=== PATIENT | female | born 1950 | race Caucasian/White ===

== ENCOUNTER 2018-03-17 16:09 | Outpatient (REF) | payer MEDICARE, SELFPAY ==
[2018-03-17 19:08] LABS: HCT 39.3 % (36.0-46.0); HGB 13.2 g/dL (12.0-15.5); Mean Corp. HGB Concentration 33.6 g/dL (32.0-36.0); Mean Corpuscular Hemoglobin 34.1 pg (27.0-33.0); Mean Corpuscular Volume 101.6 fL (80-95); Mean Platelet Volume 10.1 fL (8.0-11.0); Platelet Count 249 x1000/uL (130-400); RBC 3.87 m/cumm (4.00-5.20); RBC Distribution Width 12.8 % (11.7-14.6)
[2018-03-17 19:26] LABS: ALT 19 U/L (12-78); AST 25 U/L (15-37); Albumin 3.6 g/dL (3.4-5.0); Alkaline Phosphatase 113 U/L (46-116); Anion Gap 9.4 mmol/L (3-11); BUN 19 mg/dL (7-18); Bilirubin, Total 0.2 mg/dL (0.2-1.0); CO2 25.6 mmol/L (21.0-32.0); CREATININE 1.12 mg/dL (0.55-1.02); Calcium 9.1 mg/dL (8.5-10.1); Chloride 104 mmol/L (98-107); Estimated GFR 48.52 (mL/min/1.73m2); Glucose 91 mg/dL (70-100); Potassium 4.6 mmol/L (3.5-5.1); Sodium 139 mmol/L (136-145); TSH 0.57 uIU/mL (0.358-3.74); Total Protein 6.7 g/dL (6.4-8.2)
[2018-03-20 12:59] LABS: Methylmalonic Acid 0.26 nmol/mL (<=0.40)
== END 2018-03-17 16:10 ==
LOC: NCHCN 16:09
PROVIDERS: PCP Internal Medicine; Visit Provider Internal Medicine
DX: I10 Essential (primary) hypertension (principal); R63.4 Abnormal weight loss; N32.9 Bladder disorder, unspecified; F17.210 Nicotine dependence, cigarettes, uncomplicated
CPT/HCPCS: 80053; 80186; 85027; 84443

== ENCOUNTER 2019-02-26 18:33 | Outpatient (REF) | payer MEDICARE, SELFPAY ==
[2019-02-26 19:46] LABS: Anion Gap 12.7 mmol/L (3-11); BUN 20 mg/dL (7-18); CO2 24.3 mmol/L (21.0-32.0); CREATININE 0.99 mg/dL (0.55-1.02); Calcium 10.1 mg/dL (8.5-10.1); Chloride 104 mmol/L (98-107); Estimated GFR 55.78 (mL/min/1.73m2); Glucose 93 mg/dL (70-100); Potassium 4.1 mmol/L (3.5-5.1); Sodium 141 mmol/L (136-145)
[2019-02-26 19:58] LABS: HCT 38.5 % (36.0-46.0); HGB 13.2 g/dL (12.0-15.5); Mean Corp. HGB Concentration 34.3 g/dL (32.0-36.0); Mean Corpuscular Hemoglobin 34.7 pg (27.0-33.0); Mean Corpuscular Volume 101.3 fL (80-95); Mean Platelet Volume 10.1 fL (8.0-11.0); Platelet Count 266 x1000/uL (130-400); RBC Distribution Width 13.2 % (11.7-14.6); White Blood Cell Count 8.06 k/cumm (4.4-10.8)
[2019-02-26 20:55] LABS: ESR 29 mm/hr (0-30)
[2019-03-02 10:09] LABS: Rheumatoid Factor 119 IU/mL (<12.5)
[2019-03-02 10:12] LABS: Cyclic Citrullinated Peptide 2.5 U/mL (<5.0)
== END 2019-02-26 18:53 ==
LOC: NCHCN 18:33
PROVIDERS: PCP Internal Medicine; Visit Provider Internal Medicine
DX: M41.9 Scoliosis, unspecified (principal); L40.8 Other psoriasis; G25.81 Restless legs syndrome; M06.9 Rheumatoid arthritis, unspecified; M71.30 Other bursal cyst, unspecified site
CPT/HCPCS: 80048; 85027; 85652; 86200; 86140; 86431

== ENCOUNTER 2020-01-07 19:54 | Outpatient (REF) | payer MEDICARE, SELFPAY ==
[2020-01-07 19:23] LABS: Abs Immature Grans 0.02 k/cumm (0.0-0.09); Absolute Basophil Count 0.04 k/cumm (0.0-0.2); Absolute Eosinophil Count 0.07 k/cumm (0.0-0.7); Absolute Lymphocyte Count 1.29 k/cumm (1.2-3.4); Absolute Monocyte Count 0.46 k/cumm (0.11-0.7); Absolute Neutrophil Count 6.82 k/cumm (1.2-6.7); Basophils % 0.5; Eosinophils % 0.8; HCT 38.2 % (36.0-46.0); HGB 12.9 g/dL (12.0-15.5); Immature Grans % 0.2 %; Lymphocytes % 14.8; Mean Corp. HGB Concentration 33.8 g/dL (32.0-36.0); Mean Corpuscular Hemoglobin 35.4 pg (27.0-33.0); Mean Corpuscular Volume 104.9 fL (80-95); Mean Platelet Volume 10.4 fL (8.0-11.0); Monocytes % 5.3; Neutrophils % 78.4; Platelet Count 292 x1000/uL (130-400); RBC 3.64 m/cumm (4.00-5.20); RBC Distribution Width 13.4 % (11.7-14.6)
[2020-01-07 19:31] LABS: ALT 55 U/L (14-59); AST 74 U/L (15-37); Alkaline Phosphatase 100 U/L (46-116); Anion Gap 9.8 mmol/L (3-11); BUN 17 mg/dL (7-18); Bilirubin, Total 0.5 mg/dL (0.2-1.0); CO2 27.2 mmol/L (21.0-32.0); CREATININE 1.27 mg/dL (0.55-1.02); Calcium 9.6 mg/dL (8.5-10.1); Chloride 103 mmol/L (98-107); Estimated GFR 41.72 (mL/min/1.73m2); Glucose 98 mg/dL (74-106); Potassium 3.7 mmol/L (3.5-5.1); Sodium 140 mmol/L (136-145); Total Protein 6.7 g/dL (6.4-8.2)
[2020-01-07 20:06] LABS: ESR 15 mm/hr (0-30)
== END 2020-01-07 20:14 ==
LOC: NCHCN 19:54
PROVIDERS: PCP Internal Medicine; Visit Provider Internal Medicine
DX: R63.4 Abnormal weight loss (principal); D72.829 Elevated white blood cell count, unspecified; I10 Essential (primary) hypertension; M06.9 Rheumatoid arthritis, unspecified
CPT/HCPCS: 80053; 85652; 85025

== ENCOUNTER 2020-01-28 14:16 | Outpatient (REF) | payer MEDICARE, SELFPAY ==
[2020-01-28 19:30] LABS: ALT 28 U/L (14-59); AST 35 U/L (15-37); Albumin 3.9 g/dL (3.4-5.0); Alkaline Phosphatase 90 U/L (46-116); Bilirubin, Direct 0.13 mg/dL (0.00-0.20); Bilirubin, Total 0.4 mg/dL (0.2-1.0); Total Protein 6.6 g/dL (6.4-8.2)
== END 2020-01-28 14:36 ==
LOC: NCHCN 14:16
PROVIDERS: PCP Internal Medicine; Visit Provider Internal Medicine
DX: R94.5 Abnormal results of liver function studies (principal)
CPT/HCPCS: 80076

== ENCOUNTER 2020-11-30 15:05 | Outpatient (REF) | payer MEDICARE, SELFPAY ==
[2020-11-30 20:28] LABS: HCT 37.8 % (36.0-46.0); HGB 12.4 g/dL (11.2-15.7); MCH 34.3 pg (27.0-33.0); MCHC 32.8 % (32.0-36.0); MCV 104.4 fL (80-95); MPV 10.7 fL (8.0-11.0); Platelet Count 221 10^3/uL (130-400); RBC 3.62 10^6/uL (3.93-5.22); RDW 13.1 % (11.7-14.6); WBC 8.57 10^3/uL (4.4-10.8)
[2020-11-30 20:36] LABS: Albumin 3.8 g/dL (3.4-5.0); Anion Gap 7.7 mmol/L (3-11); BUN 20 mg/dL (7-18); CO2 28.3 mmol/L (21.0-32.0); CREATININE 1.4 mg/dL (0.55-1.02); Calcium 8.9 mg/dL (8.5-10.1); Chloride 105 mmol/L (98-107); Estimated GFR 37.18 (mL/min/1.73m2); Glucose 87 mg/dL (74-106); Potassium 4.3 mmol/L (3.5-5.1); Sodium 141 mmol/L (136-145)
[2020-11-30 20:50] LABS: PHOSPHORUS 4.1 mg/dL (2.6-4.7)
== END 2020-11-30 15:06 | disposition home or self-care (01) ==
LOC: NCHCN 15:05
PROVIDERS: PCP Internal Medicine; Visit Provider Internal Medicine
DX: I10 Essential (primary) hypertension (principal); M06.9 Rheumatoid arthritis, unspecified; I35.0 Nonrheumatic aortic (valve) stenosis
CPT/HCPCS: 80069; 85027

== ENCOUNTER 2020-12-29 15:02 | Outpatient (REF) | payer MEDICARE, SELFPAY ==
[2020-12-29 19:46] LABS: Albumin 3.7 g/dL (3.4-5.0); Anion Gap 8.6 mmol/L (3-11); BUN 17 mg/dL (7-18); CO2 27.4 mmol/L (21.0-32.0); CREATININE 1.3 mg/dL (0.55-1.02); Calcium 9.6 mg/dL (8.5-10.1); Chloride 107 mmol/L (98-107); Estimated GFR 40.49 (mL/min/1.73m2); Glucose 60 mg/dL (74-106); PHOSPHORUS 4.1 mg/dL (2.6-4.7); Potassium 4.2 mmol/L (3.5-5.1); Sodium 143 mmol/L (136-145)
[2020-12-29 20:02] LABS: Bilirubin Negative (Negative); Blood Trace-lysed (Negative); Clarity Clear (Clear); Glucose Negative (Negative); Ketones Negative (Negative); Leukocyte Esterase Negative (Negative); Nitrite Negative (Negative); Urobilinogen 0.2 EU/dL (Up TO 0.2)
[2020-12-29 20:19] LABS: Bacteria Negative HPF (Negative); C & S Indicated? No; Casts Negative LPF (Negative); Crystals Negative HPF (Negative); Epithelial Cells Few HPF (Negative); Mucus Negative (Negative); Other Cells Negative (Negative); RBC 0-2 HPF (0-2); WBC Negative HPF (0-5)
[2020-12-29 20:25] LABS: COMMENT (LAB VIEW ONLY) < 13.00 mg/dL
[2021-01-03 15:50] LABS: Albumin, Urine % 18.6 %; Globulins, Urine % 81.4 %; Immunotyping, Urine (See Note); Total Protein Urine 13 mg/dL (See Note)
== END 2020-12-29 15:03 | disposition home or self-care (01) ==
LOC: NCHCN 15:02
PROVIDERS: PCP Internal Medicine; Visit Provider Internal Medicine
DX: N18.30 Chronic kidney disease, stage 3 unspecified (principal)
CPT/HCPCS: 80069; 84156; 84166; 86335; 81003; 81015; 82043; 82570

== ENCOUNTER 2021-12-25 12:19 | Outpatient (REF) | payer MEDICARE, SELFPAY ==
[2021-12-25 19:03] LABS: Abs Immature Grans 0.01 10^3/uL (0.0-0.06); Absolute Basophil Count 0.08 10^3/uL (0.0-0.2); Absolute Eosinophil Count 0.12 10^3/uL (0.0-0.7); Absolute Lymphocyte Count 1.36 10^3/uL (1.2-3.4); Absolute Monocyte Count 0.71 10^3/uL (0.1-0.8); Absolute Neutrophil Count 5.34 10^3/uL (1.2-6.7); Eosinophils % 1.6; HCT 37.6 % (36.0-46.0); HGB 12.4 g/dL (11.2-15.7); Immature Grans % 0.1; Lymphocytes % 17.8; MCH 33.6 pg (27.0-33.0); MCV 102 fL (80-95); MPV 10.5 fL (8.0-11.0); Monocytes % 9.3; Neutrophils % 70.2; Platelet Count 239 10^3/uL (130-400); RBC 3.69 10^6/uL (3.93-5.22); RDW 13.6 % (11.7-14.6); RDW-SD 51.1 fL; WBC 7.62 10^3/uL (4.4-10.8)
[2021-12-25 19:09] LABS: ESR 17 mm/hr (0-30)
[2021-12-25 19:20] LABS: Albumin 3.7 g/dL (3.4-5.0); Anion Gap 7.8 mmol/L (3-11); BUN 16 mg/dL (7-18); C-Reactive Protein 0.17 mg/dL (0.0-0.3); CO2 26.2 mmol/L (21.0-32.0); CREATININE 1.1 mg/dL (0.55-1.02); Calcium 9.6 mg/dL (8.5-10.1); Chloride 109 mmol/L (98-107); Estimated GFR 48.96 (mL/min/1.73m2); Glucose 87 mg/dL (74-106); PHOSPHORUS 4.4 mg/dL (2.6-4.7); Potassium 4.4 mmol/L (3.5-5.1); Sodium 143 mmol/L (136-145); Uric Acid 4.8 mg/dL (2.6-6.0)
== END 2021-12-25 12:20 | disposition home or self-care (01) ==
LOC: NCHCN 12:19
PROVIDERS: PCP Internal Medicine; Visit Provider Internal Medicine
DX: N18.30 Chronic kidney disease, stage 3 unspecified (principal); N95.2 Postmenopausal atrophic vaginitis; M06.9 Rheumatoid arthritis, unspecified
CPT/HCPCS: 80069; 85652; 84550; 85025; 86140

== ENCOUNTER 2022-08-27 19:32 | Outpatient (REF) | payer MEDICARE, SELFPAY ==
[2022-08-27 19:37] LABS: HCT 37.7 % (36.0-46.0); HGB 12.7 g/dL (11.2-15.7); MCH 33.3 pg (27.0-33.0); MCHC 33.7 % (32.0-36.0); MCV 99 fL (80-95); MPV 10.9 fL (8.0-11.0); Platelet Count 217 10^3/uL (130-400); RBC 3.81 10^6/uL (3.93-5.22); RDW 13.4 % (11.7-14.6); RDW-SD 48.9 fL; WBC 7.58 10^3/uL (4.4-10.8)
[2022-08-27 19:41] LABS: ESR 11 mm/hr (0-30)
[2022-08-27 19:50] LABS: Albumin 3.7 g/dL (3.4-5.0); Anion Gap 9.4 mmol/L (3-11); BUN 18 mg/dL (7-18); CO2 24.6 mmol/L (21.0-32.0); Calcium 9.5 mg/dL (8.5-10.1); Chloride 108 mmol/L (98-107); Estimated GFR 60.23 (mL/min/1.73m2); Glucose 131 mg/dL (74-106); PHOSPHORUS 3.6 mg/dL (2.6-4.7); Potassium 4.4 mmol/L (3.5-5.1); Sodium 142 mmol/L (136-145)
[2022-08-28 17:40] LABS: CRP, High Sensitivity 1.62 mg/L (See Note)
== END 2022-08-27 19:33 | disposition home or self-care (01) ==
LOC: NCHCN 19:32
PROVIDERS: PCP Internal Medicine; Visit Provider Internal Medicine
DX: N18.30 Chronic kidney disease, stage 3 unspecified (principal); I10 Essential (primary) hypertension; M06.9 Rheumatoid arthritis, unspecified
CPT/HCPCS: 80069; 85027; 85652; 86141

== ENCOUNTER 2022-11-01 14:56 | Outpatient (REF) | payer MEDICARE, SELFPAY ==
[2022-11-01 19:53] LABS: ESR 9 mm/hr (0-30)
[2022-11-01 20:05] LABS: Anion Gap 8.4 mmol/L (3-11); BUN 24 mg/dL (7-18); C-Reactive Protein 0.97 mg/dL (0.0-0.3); CO2 26.6 mmol/L (21.0-32.0); CREATININE 1.1 mg/dL (0.55-1.02); Calcium 9.6 mg/dL (8.5-10.1); Chloride 104 mmol/L (98-107); Estimated GFR 53.39 (mL/min/1.73m2); Glucose 106 mg/dL (74-106); Magnesium 2.1 mg/dL (1.8-2.4); Potassium 4.8 mmol/L (3.5-5.1); Sodium 139 mmol/L (136-145)
[2022-11-01 20:34] LABS: Vitamin D 25 Total 36.9 ng/mL (30-100)
== END 2022-11-01 14:57 | disposition home or self-care (01) ==
LOC: NCHCN 14:56
PROVIDERS: PCP Internal Medicine; Visit Provider Internal Medicine
DX: M81.0 Age-related osteoporosis without current pathological fracture (principal); M06.9 Rheumatoid arthritis, unspecified
CPT/HCPCS: 80048; 82306; 85652; 83735; 86140

== ENCOUNTER 2022-12-11 13:14 | Outpatient (REF) | payer MEDICARE, SELFPAY ==
[2022-12-11 19:10] LABS: Bilirubin Negative (Negative); Blood Small (Negative); Clarity Clear (Clear); Glucose Negative (Negative); Ketones Negative (Negative); Leukocyte Esterase Moderate (Negative); Nitrite Negative (Negative); Urobilinogen 0.2 mg/dL (Up to 0.2)
[2022-12-11 19:26] LABS: Bacteria Rare HPF (Negative); C & S Indicated? Yes; Casts Negative LPF (Negative); Crystals Negative HPF (Negative); Epithelial Cells Rare HPF (Negative); Mucus Negative (Negative); RBC 0-2 HPF (0-2)
== END 2022-12-11 13:15 | disposition home or self-care (01) ==
LOC: NCHCN 13:14
PROVIDERS: PCP Internal Medicine; Visit Provider Nurse Practitioner Family
DX: R35.0 Frequency of micturition (principal)
CPT/HCPCS: 81003; 81015; 87086

== ENCOUNTER 2023-07-31 17:41 | Outpatient (REF) | payer MEDICARE, SELFPAY ==
[2023-07-31 20:51] LABS: HCT 38.2 % (36.0-46.0); HGB 12.6 g/dL (11.2-15.7); MCH 32.1 pg (27.0-33.0); MCV 97 fL (80-95); MPV 10.2 fL (8.0-11.0); Platelet Count 317 10^3/uL (130-400); RBC 3.92 10^6/uL (3.93-5.22); RDW-SD 46.4 fL; WBC 12.32 10^3/uL (4.4-10.8)
[2023-07-31 21:10] LABS: ALT 13 U/L (14-59); Anion Gap 10.3 mmol/L (3-11); BUN 19 mg/dL (7-18); CO2 24.7 mmol/L (21.0-32.0); Calcium 9.9 mg/dL (8.5-10.1); Chloride 105 mmol/L (98-107); Creatine Kinase 165 U/L (26-192); Estimated GFR 59.86 (mL/min/1.73m2); Glucose 106 mg/dL (74-106); LDH 354 U/L (81-234); Potassium 4.2 mmol/L (3.5-5.1); Sodium 140 mmol/L (136-145)
[2023-07-31 23:04] LABS: Calculated LDL 44 mg/dL (<100); Cholesterol 125 mg/dL (<200); HDL Cholesterol 58 mg/dL (40-60); Triglyceride 118 mg/dL (<150)
[2023-08-01 17:30] LABS: CRP, High Sensitivity 12.19 mg/L (See Note)
== END 2023-07-31 17:42 | disposition home or self-care (01) ==
LOC: NCHCN 17:41
PROVIDERS: PCP Internal Medicine; Visit Provider Internal Medicine
DX: E78.5 Hyperlipidemia, unspecified (principal); M60.88 Other myositis, other site
CPT/HCPCS: 80048; 80061; 82550; 85027; 86141; 83615; 84460

== ENCOUNTER 2024-02-19 20:27 | Outpatient (REF) | payer MEDICARE, SELFPAY ==
[2024-02-19 23:02] LABS: Folate 16.5 ng/mL (8.6-20.0); TSH 0.78 uIU/Ml (0.36-3.74); Vitamin B12 232 pg/mL (193-986)
[2024-02-19 23:17] LABS: Hemoglobin A1C 5.7 % (<5.7)
[2024-02-19 23:30] LABS: C-Reactive Protein 0.55 mg/dL (<or=0.5); LDH 300 U/L (81-234)
== END 2024-02-19 20:28 | disposition home or self-care (01) ==
LOC: NCHCN 20:27
PROVIDERS: PCP Internal Medicine; Visit Provider Internal Medicine
DX: R42 Dizziness and giddiness (principal); M60.9 Myositis, unspecified
CPT/HCPCS: 80186; 82607; 82746; 83036; 83615; 84439; 84443; 86140

== ENCOUNTER 2024-10-16 16:26 | Outpatient (REF) | payer MEDICARE, SELFPAY ==
[2024-10-16 19:09] LABS: HCT 41.6 % (36.0-46.0); HGB 13.9 g/dL (11.2-15.7); MCH 33.4 pg (27.0-33.0); MCHC 33.4 % (32.0-36.0); MCV 100 fL (80-95); MPV 10.2 fL (8.0-11.0); Platelet Count 236 10^3/uL (130-400); RBC 4.16 10^6/uL (3.93-5.22); RDW 14.1 % (11.7-14.6); RDW-SD 51.5 fL; WBC 8.89 10^3/uL (4.4-10.8)
[2024-10-16 19:32] LABS: Anion Gap 8.3 mmol/L (3-11); BUN 23 mg/dL (7-18); CO2 26.7 mmol/L (21.0-32.0); CREATININE 1.1 mg/dL (0.55-1.02); Calcium 10.1 mg/dL (8.5-10.1); Chloride 106 mmol/L (98-107); Estimated GFR 52.73 (mL/min/1.73m2); Glucose 101 mg/dL (74-106); Magnesium 2.4 mg/dL (1.8-2.4); Potassium 4.8 mmol/L (3.5-5.1); Sodium 141 mmol/L (136-145); TSH 0.53 uIU/mL (0.36-3.74)
== END 2024-10-16 16:27 | disposition home or self-care (01) ==
LOC: NCHCN 16:26
PROVIDERS: PCP Internal Medicine; Visit Provider Internal Medicine
DX: I95.1 Orthostatic hypotension (principal)
CPT/HCPCS: 80048; 85027; 83735; 84443

== ENCOUNTER 2025-04-26 15:46 | Outpatient (REF) | payer MEDICARE, SELFPAY ==
[2025-04-26 19:39] LABS: Abs Immature Grans 0.03 10^3/uL (0.0-0.06); HCT 39.6 % (36.0-46.0); HGB 13.4 g/dL (11.2-15.7); Immature Grans % 0.4 %; MCH 32.6 pg (27.0-33.0); MCHC 33.8 % (32.0-36.0); MCV 96 fL (80-95); MPV 9.6 fL (8.0-11.0); Platelet Count 300 10^3/uL (130-400); RBC 4.11 10^6/uL (3.93-5.22); RDW 14.3 % (11.7-14.6); RDW-SD 51.0 fL; WBC 7.39 10^3/uL (4.4-10.8)
[2025-04-28 10:56] LABS: Lyme Ab w Rflx to Lyme Confirm Negative (Negative)
[2025-04-29 14:28] LABS: B. miyamotoi PCR Negative (Negative); Babesia divergens/MO-1 Negative (Negative); Ehrlichia muris eauclairensis Negative (Negative)
== END 2025-04-26 15:47 | disposition home or self-care (01) ==
LOC: NCHCN 15:46
PROVIDERS: PCP Internal Medicine; Visit Provider Nurse Practitioner Family
DX: R05.1 Acute cough (principal)
CPT/HCPCS: 87798; 85025; 86618

== ENCOUNTER 2025-04-30 11:14 | Inpatient (IN) | payer MEDICARE, SELFPAY ==
[2025-04-30] VITALS (91 sets, daily range): BP systolic 137–214; BP diastolic 86–108; PULSE 65–109; RESP 13–34; TEMP 36.5–36.6; O2SAT 88–99
--- NOTE | 2025-04-30 11:26 | W.ED.GENAD ---
Discharge Plan Discharge Details Chief Complaint: Abd Prob Primary Care Provider: Dilan Melgar ED Provider: Chicho Seo Home Meds and New Rx's Prescriptions: No Action prednisone 1 MG tablet 4 mg PO DAILY hydrocodone-acetaminophen 1 EACH tablet 1 tab-cap PO TID aspirin [Aspirin Low-Strength] 81 MG tablet,chewable 81 mg PO DAILY calcium citrate-vitamin D3 1 EACH tablet 1 ea PO DAILY lactulose [Constulose] 10 gram/15 mL solution 15 ml PO DAILY Patient Comments: TAKE 15 ML BY MOUTH DAILY methocarbamol 500 mg tablet 1,000 mg PO QID PRN Patient Comments: TAKE TWO TABLETS BY MOUTH FOUR TIMES A DAY NEEDED lidocaine 5 % adhesive patch,medicated 1 patch transdermal Q24H Patient Comments: APPLY ONE PATCH TOPICALLY EVERY DAY REMOVE PATCHES AFTER 12 HOURS, 12 HOURS ON 12 HOURS OFF amlodipine 5 mg tablet 5 mg PO DAILY carbidopa-levodopa 25-100 mg tablet 1 tab PO TID clonazepam 0.5 mg tablet 0.5 mg PO BID PRN Spiriva Respimat 2.5 mcg/actuation mist 2 inh INHALATION BID HPI General Date/Time Provider Initiated Documentation: 04/30/25 11:18. HPI Narrative: 74 year-old female presents to ED today by POV/ambulating with her family with a chief complaint of rib pain, acute on chronic back pain, cough with mild shortness of breath in the setting of COPD, and abdominal with diagnosis of constipation with 2 visits to [facility] this week, and seen by PCP at [facility] with onset over the past week. Patient denies cardiac history. Quality described as severe tenderness throughout her back, and ribs, with RUQ abdominal pain, no radiation to syncope, hemoptysis, nausea/vomiting, black/bloody stools, endorses anorexia. Severity is described as severe. Palliating factors include was Rx'd robaxin at [facility]. Provoking factors include certain movements, has severe sciolosis and has a very hunched over contorted habitus as only comfortable posture. Patient not anticoagulated. Related Data Home Medications ?Medication ?Instructions ?Recorded ?Confirmed aspirin 81 mg chewable tablet 81 mg PO DAILY 09/06/15 04/30/25 (Aspirin Low-Strength) calcium 315 mg (as 1 ea PO DAILY 09/06/15 04/30/25 citrate)-vitamin D3 6.25 mcg (250 unit) tablet hydrocodone 7.5 mg-acetaminophen 1 tab-cap PO TID 09/06/15 04/30/25 325 mg tablet prednisone 1 mg tablet 4 mg PO DAILY 09/06/15 04/30/25 amlodipine 5 mg tablet 5 mg PO DAILY 04/30/25 04/30/25 carbidopa 25 mg-levodopa 100 mg 1 tab PO TID 04/30/25 04/30/25 tablet clonazepam 0.5 mg tablet 0.5 mg PO BID PRN 04/30/25 04/30/25 lactulose 10 gram/15 mL oral 15 ml PO DAILY 04/30/25 04/30/25 solution (Constulose) lidocaine 5 % topical patch 1 patch transdermal Q24H 04/30/25 04/30/25 methocarbamol 500 mg tablet 1,000 mg PO QID PRN 04/30/25 04/30/25 tiotropium bromide 2.5 2 inh inhalation BID 04/30/25 04/30/25 mcg/actuation mist for inhalation (Spiriva Respimat) Allergies Allergy/AdvReac Type Severity Reaction Status Date / Time sulfamethoxazole (From AdvReac Intermediate Diarrhea Verified 04/30/25 11:21 Bactrim) trimethoprim (From Bactrim) AdvReac Intermediate Diarrhea Verified 04/30/25 11:21 General Stated Complaint: Abd Prob LAKIA: 3 Review of Systems All systems reviewed & are unremarkable except as noted in HPI and below Exam Narrative Exam Narrative: GENERAL APPEARANCE: Frail, non-toxic, awake and alert, atraumatic, moderate acute distress. SKIN: Warm, pale, dry, intact, without rashes/lesions/ulcerations. HEAD: Normocephalic, atraumatic, normal hair distribution for gender/age. EYES: Normal conjunctiva, no exudates on lids/lashes. ENT: Nares patent, no circumoral cyanosis, no facial swelling NECK: Supple, trachea midline, painless cervical ROM. LUNGS/CHEST: Lungs diffusely rhonchorous without wheezing or crackles, non-labored respirations, normal A/P diameter, symmetrical expansion, no chest wall deformity, active cough HEART (CV/PV): Regular rate and rhythm with murmur of AAS, right radial pulse 2+, no peripheral edema, no JVD. ABDOMEN: Soft, non-distended, no guarding, palpable hernia versus mild rigidity without ecchymosis, right upper quadrant tenderness without Cheney sign. MSK: Normal ROM, no swelling/deformity to bilateral UEs or LEs, moving all extremities without weakness, no cyanosis, spine midline with tenderness all throughout the thoracic back region as well as right and left ribs without crepitus, severe scoliosis NEURO: Mental Status AAOx4 - alert to person, place, time, events No facial droop, no forehead involvement. Motor: No focal weakness Sensory: sensation intact to light touch globally. Gait NT PSYCH: euthymic, cooperative, pleasant, appropriate speech Course Vital Signs Vital signs: Vital Signs Temperature 36.6 C 04/30/25 11:15 Pulse 81 04/30/25 11:15 Respiratory Rate 18 04/30/25 11:15 Blood Pressure 137/87 04/30/25 11:15 Pulse Oximetry 98 04/30/25 11:15 Temperature 36.6 C 04/30/25 11:15 Pulse 81 04/30/25 11:15 Respiratory Rate 18 04/30/25 11:15 Blood Pressure 137/87 04/30/25 11:15 Pulse Oximetry 98 04/30/25 11:15 Pain Level 7 04/30/25 11:15 Medical Decision Making This dictation utilizes [id number] dictation software and may contain unedited grammatical errors. 74 year-old female presents to ED today by POV/ambulating with her family with a chief complaint of rib pain, acute on chronic back pain, cough with mild shortness of breath in the setting of COPD, and abdominal with diagnosis of constipation with 2 visits to [facility] this week, and seen by PCP at [facility] with onset over the past week. Patient denies cardiac history. Quality described as severe tenderness throughout her back, and ribs, with RUQ abdominal pain, no radiation to syncope, hemoptysis, nausea/vomiting, black/bloody stools, endorses anorexia. Severity is described as severe. Palliating factors include was Rx'd robaxin at [facility]. Provoking factors include certain movements, has severe sciolosis and has a very hunched over contorted habitus as only comfortable posture. Patients' medical history: Chronic back pain, right upper quadrant pain, rheumatoid arthritis, osteoporosis, COPD, aortic stenosis, hypertension, history of vertebral fractures. Family and social history: No current tobacco use, no EtOH use, family endorses that she has been able to perform ADLs and get up and move around quite a bit better in the past than this week, poor appetite. Pertinent exam findings / vital signs include exquisite tenderness diffusely to thoracic back and right and left rib cages with right upper quadrant tenderness without overt Cheney sign, regular rate with murmur of AAS, lungs are rhonchorous diffusely, nontoxic and afebrile. Differential / pathologies of concern include atypical chest pain, PE, constipation, small bowel obstruction, pneumonia, hernia, pancreatitis, gastritis, cholecystitis, chronic back pain, thoracic spasm. Diagnostic studies of: -CBC, CMP, magnesium, troponins, lipase, UA, EKG, CTA chest PE study, CT ABD/pelvis with contrast. -CBC shows no leukocytosis, no left shift, no anemia - Lactate negative - CMP shows anion gap of 13.8, otherwise unremarkable - Magnesium within normal limits - Serial troponins are elevated, 256, every hour to 61 - Lipase 21 - UA shows no evidence of UTI - CTA of the chest shows no PE and there is multiple chronic compression fractures of T2 T7-T8 with no other abnormality - EKG with significant movement artifact, sinus rhythm at 84 bpm with a right bundle branch block, possibly new T wave inversions V2 through V6 Interventions of: -Discussed with hospitalist Dr. Freeman at 2065- patient has significantly elevated troponin at 256/261 q1hr, inverted T-waves and significant risk factors likely warranting cardiac studies- would be difficult to have this patient transferred due to their acuity, and availability at this facility after the weekend for baseline studies. -Paged [facility] [place] [phone]. -1g PO APAP, 10mg PO ketorolac, 0.4mg SL nitro ED Course/Assessment/Plan: 74-year-old female has been having some acute on chronic back pain with right upper quadrant abdominal pain, seen multiple times at multiple clinics diagnosed with constipation and given Robaxin which is not helping whatsoever, significant decline in ADLs due to this pain. Due to the atypical and exquisite pain I did perform a cardiac workup as well as PE study, CT scan is negative for any acute pathology, EKG shows some T wave inversions with a new possible right bundle branch block with no prior EKGs to compare to and her troponin is 256 every hour to 261, I discussed with hospitalist that she has high score on heart score warranting possible admission, [facility] [place] is performed for recommendations for any timing of baseline cardiac studies and possible medication recommendations, she had been given Tylenol and Toradol for her back pain and I am trialing 1 sublingual nitro to see if this helps her pain. Patient is signed out with cardiology consult pending with admission provisional pending no recommendation to discharge. Disposition of Non-ST Elevation TN, Chronic Compression Fractures. Patient verbalized understanding of the plan and return to ED criteria and engaged in shared decision making. Medical Records Medical records reviewed: Yes I reviewed the patient's medical records. Imaging Data Radiologic Study: Attestation: I personally reviewed and interpreted this imaging study as follows: Imaging: CT Scan Radiologist's impression: EXAM: CT CHEST PE ABD PELVIS W CLINICAL HISTORY: L sided rib pain, abdominal pain, cough. TECHNIQUE: Imaging Protocol: Axial computed tomography images with coronal and sagittal reformatted images were created and reviewed. Computer aided detection (CAD) was utilized. CONTRAST MATERIAL: Intravenous: Omnipaque 350 Contrast volume:100 ml Oral: / no COMPARISON: No exams were available for comparison FINDINGS: CHEST: Pulmonary parenchyma: No consolidation. No dominant measurable mass. Emphysematous changes greater at the upper lobes. Linear multifocal areas of linear atelectasis. Tracheobronchial tree: No bronchiectasis. No mucous plugging.No bronchial wall thickening. Pleura: No effusion or pneumothorax. Mediastinum: Within normal limits. Pulmonary arteries: No visible emboli. Cardiovascular: Mildly enlarged left atrium and left ventricle. Coronary artery calcifications. No pericardial effusion. Thoracic aorta non-dilated. Bones: Severe scoliosis. [id number] compression fracture of T2. Severe compression fracture of T7. Moderate compression fracture of T8. No displaced rib fractures. Soft tissues: Unremarkable. ABDOMEN and PELVIS: Liver: Normal density. No suspicious mass. Gallbladder and biliary tract: No evidence of stones or wall thickening. No biliary dilatation. Pancreas: Normal density, no abnormal calcifications or inflammatory process. Spleen: Normal. Kidneys: Normal size, contour and axis. No radiodense stones. No obstructive uropathy. Multiple bilateral renal cysts. No suspicious masses seen. Adrenal glands: No masses seen. Aorta: Abdominal portion non-dilated. Severe atherosclerotic changes. Lymph nodes: Within normal limits. Soft tissues: Unremarkable. Bladder: Unremarkable. Bowel: No obstruction or bowel wall thickening. Sigmoid diverticulosis. No evidence of diverticulitis. Appendix appears normal. Peritoneal cavity: No ascites. No focal collection. No mesenteric inflammatory response. No free air. Bones: Unremarkable severe scoliosis and degenerative changes. Moderate compression fracture of L4. Reproductive organs: Unremarkable for age. IMPRESSION: No acute abnormality in the chest, abdomen or pelvis. Severe scoliosis and degenerative changes in the thoracic and lumbar spine. Multiple compression fractures which appear old. Lab Data Lab results reviewed: Yes I reviewed the patient's lab results. Labs: Laboratory Tests Range/Units 04/30/25 04/30/25 04/30/25 12:20 13:10 13:30 WBC (4.4-10.8) 10^3/uL 9.78 RBC (3.93-5.22) 10^6/uL 4.40 Hgb (11.2-15.7) g/dL 14.0 Hct (36.0-46.0) % 41.0 MCV (80-95) fL 93 MCH (27.0-33.0) pg 31.8 MCHC (32.0-36.0) % 34.1 RDW (11.7-14.6) % 14.0 Plt Count (130-400) 10^3/uL 237 MPV (8.0-11.0) fL 8.6 Immature Gran % % 0.5 Neutrophils % % 84.9 Lymphocytes % % 7.4 Monocytes % % 6.7 Eosinophils % % 0.1 Basophils % % 0.4 Nucleated RBC % (0.0-0.3) % 0.0 Absolute Neutrophils (1.2-6.7) 10^3/uL 8.30 H Absolute Lymphocytes (1.2-3.4) 10^3/uL 0.72 L Absolute Monocytes (0.1-0.8) 10^3/uL 0.66 Absolute Eosinophils (0.0-0.7) 10^3/uL 0.01 Absolute Basophils (0.0-0.2) 10^3/uL 0.04 VBG Lactate (<or=2.0) mmol/L 1.6 Sodium (136-145) mmol/L 141 Potassium (3.5-5.1) mmol/L 3.6 Chloride (98-107) mmol/L 102 Carbon Dioxide (21.0-32.0) mmol/L 25.2 Anion Gap (3-11) mmol/L 13.8 H BUN (7-18) mg/dL 37 H Creatinine (0.55-1.02) mg/dL 1.0 Est GFR (CKD-EPI 2020) (mL/min/1.73m2) 59.12 Glucose (74-106) mg/dL 113 H Calcium (8.5-10.1) mg/dL 10.5 H Magnesium (1.8-2.4) mg/dL 2.3 Total Bilirubin (0.2-1.0) mg/dL 0.5 AST (15-37) U/L 46 H ALT (14-59) U/L 17 Alkaline Phosphatase (46-116) U/L 124 H Troponin I (<or=51) ng/L 256 H* 261 H* Total Protein (6.4-8.2) g/dL 8.3 H Albumin (3.4-5.0) g/dL 4.4 Lipase (<78) U/L 21 Urine Color (Yellow) Yellow Urine Clarity (Clear) Clear Urine pH (5-8) 5.5 Ur Specific Bowman (1.005-1.025) 1.015 Urine Protein (Neg-Trace) mg/dL >=300 H Urine Ketones (Negative) mg/dL 15 H Urine Blood (Negative) Moderate H Urine Nitrite (Negative) Negative Urine Bilirubin (Negative) Small H Urine Urobilinogen (Up to 0.2) mg/dL 0.2 Ur Leukocyte Esterase (Negative) Negative Urine RBC (0-2) HPF 10-20 H Urine WBC (0-5) HPF 0-2 Ur Epithelial Cells (Negative) HPF Few Urine Crystals (Negative) HPF Negative Urine Bacteria (Negative) HPF Rare Urine Casts (Negative) LPF 5-10 Hyaline Urine Mucus (Negative) Trace Ur Culture Indicated? No Urine Glucose (Negative) mg/dL Negative PFSH Social History Smoking/Tobacco Use Status: Never Smoking risk assessment performed?: Yes Alcohol Intake: never Drug use: Never Substance use type: does not use Do you feel safe at home: Yes Do you feel safe in your relationship?: Yes
--- NOTE | 2025-04-30 11:45 | RT.EKG_ITS ---
APPROVED REPORT Exam: Resting ECG Reason for Exam: chest pain Patient Location: E HR:84 bpm ECG Measurements Heart Rate 84 AXIS OH [id number] P [id number] QRSd 132 QRS -65 QT 381 T 238 QTc 450 Conclusion Atrial fibrillation...V-rate 72- 97, irreg A-activity Right bundle branch block...QRSd>120, terminal axis(90,270) LVH with IVCD and secondary repol abnrm...multi-criteria, wQRSd, abnr ST-T ST depr, consider ischemia, inferior leads...ST <-0.10mV, II III aVF No STEMI
--- NOTE | 2025-04-30 11:45 | DI.CT_ITS ---
Exam(s) CT CHEST PE ABD PELVIS W EXAM: CT CHEST PE ABD PELVIS W CLINICAL HISTORY: L sided rib pain, abdominal pain, cough. TECHNIQUE: Imaging Protocol: Axial computed tomography images with coronal and sagittal reformatted images were created and reviewed. Computer aided detection (CAD) was utilized. CONTRAST MATERIAL: Intravenous: Omnipaque 350 Contrast volume:100 ml Oral: / no COMPARISON: No exams were available for comparison FINDINGS: CHEST: Pulmonary parenchyma: No consolidation. No dominant measurable mass. Emphysematous changes greater at the upper lobes. Linear multifocal areas of linear atelectasis. Tracheobronchial tree: No bronchiectasis. No mucous plugging.No bronchial wall thickening. Pleura: No effusion or pneumothorax. Mediastinum: Within normal limits. Pulmonary arteries: No visible emboli. Cardiovascular: Mildly enlarged left atrium and left ventricle. Coronary artery calcifications. No pericardial effusion. Thoracic aorta non-dilated. Bones: Severe scoliosis. [id number] compression fracture of T2. Severe compression fracture of T7. Moderate compression fracture of T8. No displaced rib fractures. Soft tissues: Unremarkable. ABDOMEN and PELVIS: Liver: Normal density. No suspicious mass. Gallbladder and biliary tract: No evidence of stones or wall thickening. No biliary dilatation. Pancreas: Normal density, no abnormal calcifications or inflammatory process. Spleen: Normal. Kidneys: Normal size, contour and axis. No radiodense stones. No obstructive uropathy. Multiple bilateral renal cysts. No suspicious masses seen. Adrenal glands: No masses seen. Aorta: Abdominal portion non-dilated. Severe atherosclerotic changes. Lymph nodes: Within normal limits. Soft tissues: Unremarkable. Bladder: Unremarkable. Bowel: No obstruction or bowel wall thickening. Sigmoid diverticulosis. No evidence of diverticulitis. Appendix appears normal. Peritoneal cavity: No ascites. No focal collection. No mesenteric inflammatory response. No free air. Bones: Unremarkable severe scoliosis and degenerative changes. Moderate compression fracture of L4. Reproductive organs: Unremarkable for age. IMPRESSION: No acute abnormality in the chest, abdomen or pelvis. Severe scoliosis and degenerative changes in the thoracic and lumbar spine. Multiple compression fractures which appear old. RADIATION DOSE DELIVERED: 195.91mGy.cm Total DLP DATA REPOSITORY: All CT scans at this facility are submitted to the National Radiology Data Registry (NRDR) Dose Index Registry (DIR) with the [employer] ([employer]). RADIATION OPTIMIZATION: All CT scans at this facility use at least one of these dose optimization techniques: automated exposure control; mA and/or kV adjustment per patient size (includes targeted exams where dose is matched to clinical indication); or iterative reconstruction.
[2025-04-30] MEDS: Omnipaque 350 MG/ML 500 ML BTL-Imaging package IJ (12:23)
[2025-04-30 12:27] LABS: Abs Immature Grans 0.05 10^3/uL (0.0-0.06); HCT 41.0 % (36.0-46.0); HGB 14.0 g/dL (11.2-15.7); Immature Grans % 0.5 %; MCH 31.8 pg (27.0-33.0); MCHC 34.1 % (32.0-36.0); MCV 93 fL (80-95); MPV 8.6 fL (8.0-11.0); Platelet Count 237 10^3/uL (130-400); RBC 4.40 10^6/uL (3.93-5.22); RDW 14.0 % (11.7-14.6); RDW-SD 47.9 fL; WBC 9.78 10^3/uL (4.4-10.8)
[2025-04-30] MEDS: Normal Saline - Diluent 50 ML VIAL IJ (12:43)
[2025-04-30] MEDS: Normal Saline Flush 10 ML SYR IVP ×2 (12:43→19:20)
[2025-04-30 12:46] LABS: ALT 17 U/L (14-59); AST 46 U/L (15-37); Albumin 4.4 g/dL (3.4-5.0); Alkaline Phosphatase 124 U/L (46-116); Anion Gap 13.8 mmol/L (3-11); BUN 37 mg/dL (7-18); Bilirubin, Total 0.5 mg/dL (0.2-1.0); CO2 25.2 mmol/L (21.0-32.0); Calcium 10.5 mg/dL (8.5-10.1); Chloride 102 mmol/L (98-107); Estimated GFR 59.12 (mL/min/1.73m2); Glucose 113 mg/dL (74-106); Lipase 21 U/L (<78); Magnesium 2.3 mg/dL (1.8-2.4); Potassium 3.6 mmol/L (3.5-5.1); Sodium 141 mmol/L (136-145); Total Protein 8.3 g/dL (6.4-8.2)
[2025-04-30 12:48] LABS: Troponin I 256 ng/L (<or=51)
[2025-04-30 13:20] LABS: Glucose Negative (Negative)
[2025-04-30 13:27] LABS: C & S Indicated? No; WBC 0-2 HPF (0-5)
[2025-04-30] MEDS: Ketorolac 10 MG TAB PO (14:02)
[2025-04-30] MEDS: Acetaminophen 500 MG TAB 1000 MG PO (14:03)
[2025-04-30 14:36] LABS: Troponin I 261 ng/L (<or=51)
[2025-04-30] MEDS: nitroGLYcerin 0.4 MG TAB SL ×2 (15:24→15:38)
[2025-04-30 16:33] LABS: Troponin I 299 ng/L (<or=51)
[2025-04-30] MEDS: MORPHine 10 MG/ML VIAL 2 MG IVP (17:18)
--- NOTE | 2025-04-30 17:18 | W.PM.HP.N ---
Date of service: 04/30/25 Time of Service: 17:18 Assessment and Plan Assessment and plan (1) Back pain: Status: Acute Assessment and plan: most likely 2/2 scoliosis. Will consult PT in am. CW medical managment (2) RBBB: Status: Acute Assessment and plan: Unknown if this is new, or just new to us. Will try to attempt to get old ekg's in the am (3) Elevated troponin: Status: Acute Assessment and plan: monitor, concern that back pain is an anginal equivalent. Will order stress and lipid panel (4) Hematuria: Status: Acute Assessment and plan: Exact etiology is unknown. Recommend repeat UA in 4-6 weeks and a more detailed history. (5) Elevated BUN: Status: Acute Assessment and plan: Elevated bun/cr ratio noted. Consider dehydration vs GIB. H/H wnl so will give small bolus (6) Hypercalcemia: Status: Acute Assessment and plan: noted, asymptomatic. Consider ionized calcium if remains high (7) Transaminitis: Status: Acute Assessment and plan: negligible dvtp lovenox History of Present Illness History of Present Illness Chief Complaint: back pain Narrative: This is a 74-year-old female who presents today with weakness as well as back pain. Patient states that she was seen at [facility] and was diagnosed with constipation and sent home with stool softener. Patient continued to have right sided chest and back pain and came in today for further evaluation and treatment. While she was in the ED laboratory work was indicative of an elevation in her troponin into the mid 250 ranges as well as a right bundle branch block. We have no prior EKGs to compare with. Patient states that nothing specific has been making her pain worse besides movement and nothing is made it better besides rest. Patient does have a significant history of scoliosis. Further history states that the patient did smoke until approximately 10 years ago. She states that she did have a cardiac cath approximately 12 years ago after sustaining a fall and suffering a back injury. Patient does endorse some shortness of breath but she also has a restricted airspace in her chest. Concerning her right bundle branch block as well as elevated troponins I asked that the ED reach out to [facility] cardiology. The recommendation is to do monitor serial EKGs and echocardiogram as well as lipids. I will place these orders. In reviewing her laboratory data the patient does have an elevated BUN to creatinine ratio at 37/1.0. She does have mild hypercalcemia. Calcium level 10.5. Patient has mild transaminitis with an AST of 46 and alk phos of 124. Patient is noted to have some hematuria as well. Does not have a positive leukocyte or nitrite. CT of the chest abdomen and pelvis showed severe scoliosis and multiple compression fractures which appear old Review of Systems Narrative: Patient does endorse some reflux disease. Patient does endorse some early satiety. PFSH All Active Problems (Updated 04/30/25 @ 17:27 by Dilan Freeman MD) Transaminitis (Acute) Hypercalcemia (Acute) Elevated BUN (Acute) Hematuria (Acute) Elevated troponin (Acute) RBBB (Acute) Back pain (Acute) Social History Smoking/Tobacco Use Status: Never Smoking risk assessment performed?: Yes Alcohol Intake: never Drug use: Never Substance use type: does not use Do you feel safe at home: Yes Do you feel safe in your relationship?: Yes Meds Allergies and Home Medications Allergies Allergy/AdvReac Type Severity Reaction Status Date / Time sulfamethoxazole (From AdvReac Intermediate Diarrhea Verified 04/30/25 11:21 Bactrim) trimethoprim (From Bactrim) AdvReac Intermediate Diarrhea Verified 04/30/25 11:21 Home Medications ?Medication ?Instructions ?Recorded ?Confirmed ?Type aspirin 81 mg chewable tablet 81 mg PO DAILY 09/06/15 04/30/25 History (Aspirin Low-Strength) calcium 315 mg (as 1 ea PO DAILY 09/06/15 04/30/25 History citrate)-vitamin D3 6.25 mcg (250 unit) tablet hydrocodone 7.5 mg-acetaminophen 1 tab-cap PO TID 09/06/15 04/30/25 History 325 mg tablet prednisone 1 mg tablet 4 mg PO DAILY 09/06/15 04/30/25 History amlodipine 5 mg tablet 5 mg PO DAILY 04/30/25 04/30/25 History carbidopa 25 mg-levodopa 100 mg 1 tab PO TID 04/30/25 04/30/25 History tablet clonazepam 0.5 mg tablet 0.5 mg PO BID PRN 04/30/25 04/30/25 History lactulose 10 gram/15 mL oral 15 ml PO DAILY 04/30/25 04/30/25 History solution (Constulose) lidocaine 5 % topical patch 1 patch transdermal Q24H 04/30/25 04/30/25 History methocarbamol 500 mg tablet 1,000 mg PO QID PRN 04/30/25 04/30/25 History tiotropium bromide 2.5 2 inh inhalation BID 04/30/25 04/30/25 History mcg/actuation mist for inhalation (Spiriva Respimat) Exam Narrative Exam Narrative: HEENT-normocephalic atraumatic mucous membranes moist Neck-no lymphadenopathy no JVD Cardiovascular-regular rate and rhythm no murmurs gallops Lungs-clear to auscultation bilaterally with good air exchange no accessory muscle use Musculoskeletal patient appears to have significant scoliosis to the left. Cranial nerves II through XII are intact as tested Patient is alert and oriented Results Labs 04/30/25 12:20 04/30/25 12:20 Labs: Laboratory Results - last 24 hr 04/30/25 04/30/25 04/30/25 12:20 13:10 13:30 WBC 9.78 RBC 4.40 Hgb 14.0 Hct 41.0 MCV 93 MCH 31.8 MCHC 34.1 RDW 14.0 Plt Count 237 MPV 8.6 Immature Gran % 0.5 Neutrophils % 84.9 Lymphocytes % 7.4 Monocytes % 6.7 Eosinophils % 0.1 Basophils % 0.4 Nucleated RBC % 0.0 Absolute Neutrophils 8.30 H Absolute Lymphocytes 0.72 L Absolute Monocytes 0.66 Absolute Eosinophils 0.01 Absolute Basophils 0.04 VBG Lactate 1.6 Sodium 141 Potassium 3.6 Chloride 102 Carbon Dioxide 25.2 Anion Gap 13.8 H BUN 37 H Creatinine 1.0 Est GFR (CKD-EPI 2020) 59.12 Glucose 113 H Calcium 10.5 H Magnesium 2.3 Total Bilirubin 0.5 AST 46 H ALT 17 Alkaline Phosphatase 124 H Troponin I 256 H* 261 H* Total Protein 8.3 H Albumin 4.4 Lipase 21 Urine Color Yellow Urine Clarity Clear Urine pH 5.5 Ur Specific [place] 1.015 Urine Protein >=300 H Urine Ketones 15 H Urine Blood Moderate H Urine Nitrite Negative Urine Bilirubin Small H Urine Urobilinogen 0.2 Ur Leukocyte Esterase Negative Urine RBC 10-20 H Urine WBC 0-2 Ur Epithelial Cells Few Urine Crystals Negative Urine Bacteria Rare Urine Casts 5-10 Hyaline Urine Mucus Trace Ur Culture Indicated? No Urine Glucose Negative 04/30/25 16:00 WBC RBC Hgb Hct MCV MCH MCHC RDW Plt Count MPV Immature Gran % Neutrophils % Lymphocytes % Monocytes % Eosinophils % Basophils % Nucleated RBC % Absolute Neutrophils Absolute Lymphocytes Absolute Monocytes Absolute Eosinophils Absolute Basophils VBG Lactate Sodium Potassium Chloride Carbon Dioxide Anion Gap BUN Creatinine Est GFR (CKD-EPI 2020) Glucose Calcium Magnesium Total Bilirubin AST ALT Alkaline Phosphatase Troponin I 299 H* Total Protein Albumin Lipase Urine Color Urine Clarity Urine pH Ur Specific [place] Urine Protein Urine Ketones Urine Blood Urine Nitrite Urine Bilirubin Urine Urobilinogen Ur Leukocyte Esterase Urine RBC Urine WBC Ur Epithelial Cells Urine Crystals Urine Bacteria Urine Casts Urine Mucus Ur Culture Indicated? Urine Glucose Last Vital Signs Temp 36.6 C 04/30/25 11:15 Pulse 92 H 04/30/25 16:51 Resp 21 04/30/25 16:51 BP 173/100 H 04/30/25 16:45 Pulse Ox 96 04/30/25 16:51 Time Spent Time spent with Patient: <40 minutes Time was spent: preparing to see the patient(eg.review tests), obtaining and/or reviewing separately otained hiistory, ordering medications,tests, procedures, referring, communicating with other health respiratory care practitioner, indepentently interpreting results, counseling the patient and care coordination
--- NOTE | 2025-04-30 17:35 | W.PC.ACHO ---
Registration Status: REG ER Primary Language: Preferred Language: ED Information & Data Chief Complaint Abd Prob 04/30/25 13:04 Chief Complaint Abd Prob 04/30/25 11:26 Other Complaint Nk/Back Pain 04/30/25 11:15 Triage Note [facility] sent pt 04/30/25 11:15 here, [facility] to [facility] evaluated for this. pain in upper middle of back , radiating left. pt has hx severe scoliosis. they gave her lidocaine patch and muscle relaxers. they did imaging and blood. pt diagnosed w/ constipation as well. They gave her an enema and sent her home. pt also has junky cough. Most Recent Vital Signs Temperature 36.6 C 04/30/25 11:15 Pulse 83 04/30/25 17:31 Pulse 87 04/30/25 17:31 Respiratory Rate 26 H 04/30/25 17:31 Respiratory Effort Normal, Non-Labored 04/30/25 15:30 Respiratory Depth Normal 04/30/25 15:30 Respiratory Pattern Irregular 04/30/25 15:30 Blood Pressure 198/95 H 04/30/25 17:31 Blood Pressure Mean 136 04/30/25 17:31 Blood Pressure Position Sitting 04/30/25 15:30 Pulse Oximetry 98 04/30/25 17:31 Oxygen Delivery Method Room Air 04/30/25 15:30 Oxygen Flow Rate 0 04/30/25 15:30 Pain Level 7 04/30/25 11:15 Allergies sulfamethoxazole (From Bactrim) Adverse Reaction (Intermediate, Verified 04/30/25 11:21) Diarrhea trimethoprim (From Bactrim) Adverse Reaction (Intermediate, Verified 04/30/25 11:21) Diarrhea Precautions Isolation Fall precaution 04/30/25 13:04 Active Medications Generic Name Dose Route Start Last Admin Trade Name Freq PRN Reason Stop Dose Admin Iohexol 500 ml 04/30/25 12:30 04/30/25 12:23 Omnipaque 350 Mg/Ml 500 Ml Btl-Imaging Package IJ 05/30/25 23:59 100 ml DIRECTED TRISTAN Administration Sodium Chloride 0 ml 04/30/25 12:21 04/30/25 12:43 Normal Saline Flush 10 Ml Syr IVP 10 ml PRN PRN Administration Sodium Chloride 50 ml 04/30/25 12:30 04/30/25 12:43 Normal Saline - Diluent 50 Ml Vial IJ 50 ml DIRECTED TRISTAN Administration IV IV Catheter Type [Right Saline Lock Antecubital] IV Catheter Gauge [Right 20 Antecubital] Diet Orders Category Date Time Status Regular/Normal [DIET] Nutrition 04/30/25 Dinner Active Diagnostics 04/30/25 04/30/25 04/30/25 Range/Units 20:15 18:15 17:25 WBC (4.4-10.8) 10^3/uL RBC (3.93-5.22) 10^6/uL Hgb (11.2-15.7) g/dL Hct (36.0-46.0) % MCV (80-95) fL MCH (27.0-33.0) pg MCHC (32.0-36.0) % RDW (11.7-14.6) % Plt Count (130-400) 10^3/uL MPV (8.0-11.0) fL Immature Gran % % Neutrophils % % Lymphocytes % % Monocytes % % Eosinophils % % Basophils % % Nucleated RBC % (0.0-0.3) % Absolute Neutrophils (1.2-6.7) 10^3/uL Absolute Lymphocytes (1.2-3.4) 10^3/uL Absolute Monocytes (0.1-0.8) 10^3/uL Absolute Eosinophils (0.0-0.7) 10^3/uL Absolute Basophils (0.0-0.2) 10^3/uL VBG Lactate (<or=2.0) mmol/L Sodium (136-145) mmol/L Potassium (3.5-5.1) mmol/L Chloride (98-107) mmol/L Carbon Dioxide (21.0-32.0) mmol/L Anion Gap (3-11) mmol/L BUN (7-18) mg/dL Creatinine (0.55-1.02) mg/dL Est GFR (CKD-EPI 2020) (mL/min/1.73m2) Glucose (74-106) mg/dL Calcium (8.5-10.1) mg/dL Magnesium (1.8-2.4) mg/dL Total Bilirubin (0.2-1.0) mg/dL AST (15-37) U/L ALT (14-59) U/L Alkaline Phosphatase (46-116) U/L Troponin I Pending Pending Pending (<or=51) ng/L Total Protein (6.4-8.2) g/dL Albumin (3.4-5.0) g/dL Lipase (<78) U/L Urine Color (Yellow) Urine Clarity (Clear) Urine pH (5-8) Ur Specific [place] (1.005-1.025) Urine Protein (Neg-Trace) mg/dL Urine Ketones (Negative) mg/dL Urine Blood (Negative) Urine Nitrite (Negative) Urine Bilirubin (Negative) Urine Urobilinogen (Up to 0.2) mg/dL Ur Leukocyte Esterase (Negative) Urine RBC (0-2) HPF Urine WBC (0-5) HPF Ur Epithelial Cells (Negative) HPF Urine Crystals (Negative) HPF Urine Bacteria (Negative) HPF Urine Casts (Negative) LPF Urine Mucus (Negative) Ur Culture Indicated? Urine Glucose (Negative) mg/dL 04/30/25 04/30/25 04/30/25 Range/Units 16:00 13:30 13:10 WBC (4.4-10.8) 10^3/uL RBC (3.93-5.22) 10^6/uL Hgb (11.2-15.7) g/dL Hct (36.0-46.0) % MCV (80-95) fL MCH (27.0-33.0) pg MCHC (32.0-36.0) % RDW (11.7-14.6) % Plt Count (130-400) 10^3/uL MPV (8.0-11.0) fL Immature Gran % % Neutrophils % % Lymphocytes % % Monocytes % % Eosinophils % % Basophils % % Nucleated RBC % (0.0-0.3) % Absolute Neutrophils (1.2-6.7) 10^3/uL Absolute Lymphocytes (1.2-3.4) 10^3/uL Absolute Monocytes (0.1-0.8) 10^3/uL Absolute Eosinophils (0.0-0.7) 10^3/uL Absolute Basophils (0.0-0.2) 10^3/uL VBG Lactate (<or=2.0) mmol/L Sodium (136-145) mmol/L Potassium (3.5-5.1) mmol/L Chloride (98-107) mmol/L Carbon Dioxide (21.0-32.0) mmol/L Anion Gap (3-11) mmol/L BUN (7-18) mg/dL Creatinine (0.55-1.02) mg/dL Est GFR (CKD-EPI 2020) (mL/min/1.73m2) Glucose (74-106) mg/dL Calcium (8.5-10.1) mg/dL Magnesium (1.8-2.4) mg/dL Total Bilirubin (0.2-1.0) mg/dL AST (15-37) U/L ALT (14-59) U/L Alkaline Phosphatase (46-116) U/L Troponin I 299 H* 261 H* (<or=51) ng/L Total Protein (6.4-8.2) g/dL Albumin (3.4-5.0) g/dL Lipase (<78) U/L Urine Color Yellow (Yellow) Urine Clarity Clear (Clear) Urine pH 5.5 (5-8) Ur Specific [place] 1.015 (1.005-1.025) Urine Protein >=300 H (Neg-Trace) mg/dL Urine Ketones 15 H (Negative) mg/dL Urine Blood Moderate H (Negative) Urine Nitrite Negative (Negative) Urine Bilirubin Small H (Negative) Urine Urobilinogen 0.2 (Up to 0.2) mg/dL Ur Leukocyte Esterase Negative (Negative) Urine RBC 10-20 H (0-2) HPF Urine WBC 0-2 (0-5) HPF Ur Epithelial Cells Few (Negative) HPF Urine Crystals Negative (Negative) HPF Urine Bacteria Rare (Negative) HPF Urine Casts 5-10 Hyaline (Negative) LPF Urine Mucus Trace (Negative) Ur Culture Indicated? No Urine Glucose Negative (Negative) mg/dL 04/30/25 Range/Units 12:20 WBC 9.78 (4.4-10.8) 10^3/uL RBC 4.40 (3.93-5.22) 10^6/uL Hgb 14.0 (11.2-15.7) g/dL Hct 41.0 (36.0-46.0) % MCV 93 (80-95) fL MCH 31.8 (27.0-33.0) pg MCHC 34.1 (32.0-36.0) % RDW 14.0 (11.7-14.6) % Plt Count 237 (130-400) 10^3/uL MPV 8.6 (8.0-11.0) fL Immature Gran % 0.5 % Neutrophils % 84.9 % Lymphocytes % 7.4 % Monocytes % 6.7 % Eosinophils % 0.1 % Basophils % 0.4 % Nucleated RBC % 0.0 (0.0-0.3) % Absolute Neutrophils 8.30 H (1.2-6.7) 10^3/uL Absolute Lymphocytes 0.72 L (1.2-3.4) 10^3/uL Absolute Monocytes 0.66 (0.1-0.8) 10^3/uL Absolute Eosinophils 0.01 (0.0-0.7) 10^3/uL Absolute Basophils 0.04 (0.0-0.2) 10^3/uL VBG Lactate 1.6 (<or=2.0) mmol/L Sodium 141 (136-145) mmol/L Potassium 3.6 (3.5-5.1) mmol/L Chloride 102 (98-107) mmol/L Carbon Dioxide 25.2 (21.0-32.0) mmol/L Anion Gap 13.8 H (3-11) mmol/L BUN 37 H (7-18) mg/dL Creatinine 1.0 (0.55-1.02) mg/dL Est GFR (CKD-EPI 2020) 59.12 (mL/min/1.73m2) Glucose 113 H (74-106) mg/dL Calcium 10.5 H (8.5-10.1) mg/dL Magnesium 2.3 (1.8-2.4) mg/dL Total Bilirubin 0.5 (0.2-1.0) mg/dL AST 46 H (15-37) U/L ALT 17 (14-59) U/L Alkaline Phosphatase 124 H (46-116) U/L Troponin I 256 H* (<or=51) ng/L Total Protein 8.3 H (6.4-8.2) g/dL Albumin 4.4 (3.4-5.0) g/dL Lipase 21 (<78) U/L Urine Color (Yellow) Urine Clarity (Clear) Urine pH (5-8) Ur Specific [place] (1.005-1.025) Urine Protein (Neg-Trace) mg/dL Urine Ketones (Negative) mg/dL Urine Blood (Negative) Urine Nitrite (Negative) Urine Bilirubin (Negative) Urine Urobilinogen (Up to 0.2) mg/dL Ur Leukocyte Esterase (Negative) Urine RBC (0-2) HPF Urine WBC (0-5) HPF Ur Epithelial Cells (Negative) HPF Urine Crystals (Negative) HPF Urine Bacteria (Negative) HPF Urine Casts (Negative) LPF Urine Mucus (Negative) Ur Culture Indicated? Urine Glucose (Negative) mg/dL Intake and Output - 24 Hour Total 04/30/25 11:14 thru 04/30/25 12:23 Intake Total 10 Balance 10 Weight 40.823 kg Intake: IV 10 Falls Risk Assessment History of Falls Previous History 04/30/25 13:04 Contributing Factors Impairments,Medications 04/30/25 13:04 Ambulatory Aids Uses ambulatory device + 04/30/25 13:04 Tubes/Lines With any additional score 04/30/25 13:04 Gait Evaluation W/any additional score 04/30/25 13:04 Cognition No cognitive impairment 04/30/25 13:04 Fall Total Score 91 04/30/25 13:04 Level of Risk Maximum Risk 04/30/25 13:04 Problems Transaminitis (Acute) Hypercalcemia (Acute) Elevated BUN (Acute) Hematuria (Acute) Elevated troponin (Acute) RBBB (Acute) Back pain (Acute) v v v v v v v v v Sending and/or Receiving Nurses: Please use comment section below to note any information pertinent to the patient hand-off not included above. Information / Comments: Report received from: Monika Dumont RN
[2025-04-30] MEDS: Aspirin 325 MG TAB PO (17:42)
[2025-04-30] MEDS: MORPHine 4 MG/ML SYR 2 MG IVP (17:42)
[2025-04-30 17:53] LABS: Troponin I 307 ng/L (<or=51)
[2025-04-30 19:06] LABS: Troponin I 343 ng/L (<or=51)
[2025-04-30] MEDS: Milk of Magnesia 30 ML CUP PO (19:18)
[2025-04-30] MEDS: Polyethylene Glycol 3350 17 GM PACKET PO (19:19)
[2025-04-30] MEDS: Enoxaparin 40 MG/0.4 ML SYR SC (19:19)
[2025-04-30] MEDS: MORPHine 2 MG/ML SYR IVP (19:19)
[2025-04-30] MEDS: Docusate Sodium 100 MG CAP PO ×2 (19:19→21:33)
[2025-04-30 20:56] LABS: Troponin I 338 ng/L (<or=51)
[2025-04-30] MEDS: Acetaminophen 325 MG TAB PO (21:32)
[2025-04-30] MEDS: Carbidopa 25/Levodopa 100 TAB PO (21:32)
[2025-04-30] MEDS: clonazePAM 0.5 MG TAB PO (21:32)
[2025-04-30] MEDS: Methocarbamol 500 MG TAB 1000 MG PO (21:33)
[2025-04-30] MEDS: Lidocaine 5% Patch 1 PATCH TD (21:36)
[2025-05-01] VITALS (26 sets, daily range): BP systolic 110–162; BP diastolic 76–117; PULSE 68–95; RESP 16–39; TEMP 36.8–37.1; O2SAT 89–97
--- NOTE | 2025-05-01 | DI.RAD_ITS ---
Exam(s) XR ABDOMEN FLAT UPRIGHT EXAM: 2D digital imaging was performed. CLINICAL HISTORY: constipation. COMPARISON: CT CT CHEST PE ABD PELVIS W from 04/30/2025 TECHNIQUE: Supine and upright views of the abdomen were performed. FINDINGS: BOWEL GAS PATTERN: Nondistended.No free air. Increased stool in right side of colon. CALCIFICATIONS: No urinary tract calcifications. OSSEOUS STRUCTURES: Severe scoliosis and degenerative changes. Visualized portions of chest: Unremarkable. Soft tissues: Aorta heavily calcified. Small amount of residual contrast seen in urinary bladder. IMPRESSION: Nonobstructive bowel gas pattern. Increased quantity of stool which could indicate constipation. The preliminary [facility] report was reviewed. DATA REPOSITORY: RADIATION DOSE DELIVERED:
[2025-05-01] MEDS: Acetaminophen 325 MG TAB PO (03:51)
[2025-05-01] MEDS: Normal Saline Flush 10 ML SYR IVP ×2 (03:52→08:17)
[2025-05-01] MEDS: MORPHine 2 MG/ML SYR IVP ×3 (03:53→22:54)
[2025-05-01 06:04] LABS: Abs Immature Grans 0.05 10^3/uL (0.0-0.06); HCT 39.3 % (36.0-46.0); HGB 13.3 g/dL (11.2-15.7); Immature Grans % 0.6 %; MCH 31.5 pg (27.0-33.0); MCHC 33.8 % (32.0-36.0); MCV 93 fL (80-95); MPV 9.7 fL (8.0-11.0); Platelet Count 241 10^3/uL (130-400); RBC 4.22 10^6/uL (3.93-5.22); RDW 14.3 % (11.7-14.6); RDW-SD 48.2 fL; WBC 9.03 10^3/uL (4.4-10.8)
[2025-05-01 06:24] LABS: ALT 8 U/L (14-59); AST 44 U/L (15-37); Albumin 3.8 g/dL (3.4-5.0); Alkaline Phosphatase 109 U/L (46-116); Anion Gap 9.7 mmol/L (3-11); BUN 37 mg/dL (7-18); Bilirubin, Total 0.5 mg/dL (0.2-1.0); CO2 28.3 mmol/L (21.0-32.0); Calcium 9.8 mg/dL (8.5-10.1); Chloride 102 mmol/L (98-107); Estimated GFR 52.73 (mL/min/1.73m2); Glucose 127 mg/dL (74-106); Potassium 3.2 mmol/L (3.5-5.1); Sodium 140 mmol/L (136-145); Total Protein 7.2 g/dL (6.4-8.2)
[2025-05-01] MEDS: Lactulose 20 GM/30 ML CUP 10 GM PO (08:18)
[2025-05-01] MEDS: Docusate Sodium 100 MG CAP PO ×3 (08:19→19:52)
[2025-05-01] MEDS: amLODIPine 5 MG TAB PO (08:19)
[2025-05-01] MEDS: Carbidopa 25/Levodopa 100 TAB PO ×3 (08:19→19:51)
[2025-05-01] MEDS: Aspirin 81 MG CHEW PO (08:19)
[2025-05-01] MEDS: Lactated Ringers 1,000 ML 75 ML IV (08:34)
[2025-05-01] MEDS: Tiotropium Bromide-Respimat 10 PUFF INH 2 PUFF IH ×2 (10:08→20:07)
--- NOTE | 2025-05-01 12:13 | PT.INIE ---
Date of service: 05/01/25 Time of Service: 11:35 PT Notes Visit Reasons: back pain Inpatient Physical Therapy Evaluation Certification Period:? From _05/01/25 ?? Through __05/04/25____ I certify the need for these services as being medically necessary and skilled as furnished under this plan of treatment while under my care. Please sign and return within 14 days if you agree with the plan of care listed below.? Thank you for this referral! ? Referring Physician? Date Referring Doctor:?Dilan Freeman MD PT Orders: PT CONSULT for back pain, safety Precautions: pain, elevated troponin Patient Profile/Admitting Diagnosis:? The patient is a 74 yo female adm on 04/30/25 for back pain secondary to severe scoliosis and h/o compression fractures, RBBB, Elevated troponin, Hematuria, Elevated BUN, Hypercalcemia, Transaminitis. Presented to the ED by POV/ambulating with her family with a chief complaint of rib pain, acute on chronic back pain, cough with mild shortness of breath in the setting of COPD, and abdominal with diagnosis of constipation with 2 visits to [facility] this week, and seen by PCP at [facility] with onset over the past week. CT scan 05/01/27: [id number] compression fracture of T2. Severe compression fracture of T7. Moderate compression fracture of T8. Moderate compression fracture L4 Past Medical History: All Active Problems (Updated 04/30/25 @ 17:27 by Dilan Freeman MD) Transaminitis (Acute) Hypercalcemia (Acute) Elevated BUN (Acute) Hematuria (Acute) Elevated troponin (Acute) RBBB (Acute) Back pain (Acute) rheumatoid arthritis osteoporosis, COPD aortic stenosis hypertension history of vertebral fractures Medications: See chart Social History/Home Situation: Lives with her spouse in [place]. 1 step to enter 2 level home. Her bedroom is upstairs. Normally walks without an A.D but has a walker to use if she has a day or two of back pain. Normally able to cook and clean. Does the stairs to her bedroom with a step to pattern normally. Not sure that she would have a place to sleep downstairs and would prefer to sleep in her own bed. She and her spouse grocery shop together. He carries the groceries. Normally able to bathe and dress without any issues. Has 4 small dogs at home. Spouse and son present for today's session. Subjective: Reports she normally moves around fairly well. Objective: on telemetry and monitored by nursing. vitals stable this morning Mental Status: Patient is alert and oriented. Pain: RN reports using morphine to manage the pain. patient reports she takes 1/2 oxycodone in the afternoon and 2 at bedtime normally. Minimal symptoms at rest and with walking. Increased symptoms wtih attempted bed mobility. Vital Signs: monitored by nursing. ROM/Strength: Upper extremities:able to move against gravity Lower extremities: able to move against gravity Sensation: did not report numbness or tingling Soft tissue/edema: no gross abnormalities observed. Bed Mobility: Sitting on edge of bed leaning to left with head of bed elevated to 60 degrees, propped with pillows upon arrival. attempted sit to supine but with increased pain, so stopped and declined trying again with therapist assist. Transfers: Sit to/from stand 2x with CGA. standing with trunk flexion and slightly leaning to left secondary to scoliosis Gait: Ambulated 3 feet forwards and backwards, 70 feet with walker with assist for lines with CGA and cuing to keep walker closer. The walker does not adjust to be short enough for the patient. She reports this walker is the same height as the one she has at home. Sitting: initially refused sitting in a chair. Agreeable at the end and propped with pillows. Reported she felt comfortable in this position. Balance: [facility] AM-PAC 6 clicks Basic Mobility Inpatient Short Form: Raw Score:?16? CMS Score: 54.16% Informed Consent/Education:? Patient instructed in purpose of PT consult and plan of care and is agreeable Assessment:? Patient is a? 74 yo female adm on 04/30/25 for back pain secondary to severe scoliosis and h/o compression fractures, RBBB, Elevated troponin, Hematuria, Elevated BUN, Hypercalcemia, Transaminitis.? Patient presents with back and abdominal pain, decreased strength, decreased functional mobility, decreased balance and difficulty with ambulation. The patient would benefit from skilled inpatient services to improve these impairments to maximize function and safety. Patient is assessed as:? Low 13951? complexity based on the following: History: duration of symptoms, scoliosis Examination: see above Presentation: Stable and uncomplicated? Decision Making:? Low (0 history, 1-2 exam, stable/predictable, easy 20) Physical Therapy Goals: 3 days Able to get in/out of bed with supervision only. Able to perform sit to/from stand with supervision only. Able to walk 100 feet with rolling walker with supervision only. Able to go up and down 2-3 steps with 1 rail with contact guard assist only. Independent with home exercise program Plan of Care/Treatment Plan: 1x/day, 7 days/week x 1 week. Plan of care has been reviewed with the ATOMIC WELDER providing the service under Physical Therapy direction. Initiate Physical Therapy intervention for strengthening, bed mobility, transfers, gait, stairs, balance training, use of assistive device. DISCHARGE RECOMMENDATIONS: HHPT Informed consent Prior to the start and throughout the course of the examination and treatment, patient was made aware of the specifics and purpose of the physical assessment and treatment procedures. Appropriate draping procedures were utilized to protect modesty where applicable. Billing Charges: Treatment Units Time Duration Manual Therapy(72935) Hands-on techniques to modulate pain increase joint range of motion reduce or eliminate soft tissue swelling, inflammation, or restriction facilitate relaxation and improve contractile and non-contractile tissue extensibility ? ? Therapeutic Procedures (01817) Instruction in therapeutic exercises to develop strength and endurance, range of motion and flexibility. HEP instruction and review: Provided skilled instruction in proper exercise performance: Provided skilled manual cues to facilitate proper muscle recruitment and/or movement pattern Neurological Re-Education(46973) To improve balance, coordination, kinesthetic and proprioceptive sensations. ? ? Ultrasound(44607) To promote healing. ? ? Gait Training(03633) ? ? Therapeutic Activity(41670) Instruction in dynamic activities with one on one patient contact by the provider to improve functional performance as follows: 2 ? 25 ? Self Care Training(89076) ? ? E-Stim (Attended)(56295) ? ? Low IE(72079) 1 23 Mod IE(93015) ? ? High IE(64625) ? ? Time Coded Treatment Time ? Total Treatment Time ? 48
[2025-05-01] MEDS: Mylanta Suspension 30 ML CUP PO (12:29)
--- NOTE | 2025-05-01 15:20 | W.PM.PROGNOT ---
Date of Service Date of service: 05/01/25 Time of Service: 15:20 Assessment and Plan Assessment and plan (1) Back pain: Status: Acute Assessment and plan: most likely 2/2 scoliosis. Will consult PT in am. CW medical managment 05/01/25 Notes reviewed from PT with dc recommendations being HHPT (2) RBBB: Status: Acute Assessment and plan: Unknown if this is new, or just new to us. Will try to attempt to get old ekg's in the am (3) Elevated troponin: Status: Acute Assessment and plan: monitor, concern that back pain is an anginal equivalent. Will order stress and lipid panel Recheck troponins in am, last set appx ~350. Atypical chest pain. Recheck in am (4) Hematuria: Status: Acute Assessment and plan: Exact etiology is unknown. Recommend repeat UA in 4-6 weeks and a more detailed history. PT denies significant history. Pt does not follow with a Interlibrary Loan Specialist (5) Elevated BUN: Status: Acute Assessment and plan: Elevated bun/cr ratio noted. Consider dehydration vs GIB. H/H wnl so will give small bolus (6) Hypercalcemia: Status: Acute Assessment and plan: noted, asymptomatic. Consider ionized calcium if remains high (7) Transaminitis: Status: Acute Assessment and plan: negligible dvtp lovenox Subjective Subjective Interval history since last seen: chest pain is persistent but not worse. No jaw/arm pain no diaphoreisis Exam Narrative Exam Narrative: HEENT-normocephalic atraumatic mucous membranes moist Neck-no lymphadenopathy no JVD Cardiovascular-regular rate and rhythm no murmurs gallops Lungs-clear to auscultation bilaterally with good air exchange no accessory muscle use Musculoskeletal patient appears to have significant scoliosis to the left. Cranial nerves II through XII are intact as tested Patient is alert and oriented Objective Last Vital Signs Temp 36.8 C 05/01/25 12:25 Pulse 83 05/01/25 12:25 Resp 19 05/01/25 12:25 BP 110/80 05/01/25 12:25 Pulse Ox 96 05/01/25 12:25 Laboratory Results - last 24 hr 04/30/25 04/30/25 04/30/25 16:00 17:25 18:28 WBC RBC Hgb Hct MCV MCH MCHC RDW Plt Count MPV Immature Gran % Neutrophils % Lymphocytes % Monocytes % Eosinophils % Basophils % Nucleated RBC % Absolute Neutrophils Absolute Lymphocytes Absolute Monocytes Absolute Eosinophils Absolute Basophils Sodium Potassium Chloride Carbon Dioxide Anion Gap BUN Creatinine Est GFR (CKD-EPI 2020) Glucose Calcium Total Bilirubin AST ALT Alkaline Phosphatase Troponin I 299 H* 307 H* 343 H* Total Protein Albumin 04/30/25 05/01/25 20:30 05:12 WBC 9.03 RBC 4.22 Hgb 13.3 Hct 39.3 MCV 93 MCH 31.5 MCHC 33.8 RDW 14.3 Plt Count 241 MPV 9.7 Immature Gran % 0.6 Neutrophils % 72.3 Lymphocytes % 15.0 Monocytes % 10.6 Eosinophils % 0.7 Basophils % 0.8 Nucleated RBC % 0.0 Absolute Neutrophils 6.54 Absolute Lymphocytes 1.35 Absolute Monocytes 0.96 H Absolute Eosinophils 0.06 Absolute Basophils 0.07 Sodium 140 Potassium 3.2 L Chloride 102 Carbon Dioxide 28.3 Anion Gap 9.7 BUN 37 H Creatinine 1.1 H Est GFR (CKD-EPI 2020) 52.73 Glucose 127 H Calcium 9.8 Total Bilirubin 0.5 AST 44 H ALT 8 L Alkaline Phosphatase 109 Troponin I 338 H* Total Protein 7.2 Albumin 3.8 Time Spent with Patient Time Spent with Patient: 25-34 minutes Time was spent: preparing to see the patient(eg.review tests), obtaining and/or reviewing separately otained hiistory, ordering medications,tests, procedures, referring, communicating with other health vp care management, indepentently interpreting results, counseling the patient, care coordination and other
--- NOTE | 2025-05-01 17:33 | PDOC.CMIN ---
Date of service: 05/01/25 Time of Service: 18:07 Care Management Initial Assmt Initial Assessment Reason for Hospitalization: Back pain Functional Status/Living Situation Patient Presentation: Heather was sitting in her chair, visiting with her son Reji and her Tony when CM met with her. She presented to the ED yesterday with a chief complaint of rib pain, acute on chronic back pain, cough with mild shortness of breath; see ED documentation. Per report, Heather has a PT consult, Echo, x-ray and stress test pending. Cardiology was consulted. Heather shares she is living in [place] with Tony. She has 3 adult sons. Heather is independent at home, including driving. She states she does not have any community services at home and does not feel they would be helpful at this time. Heather reported that she is an established patient at [facility]; however, her primary care provider has recently left the practice, and she has not yet established care with a new provider. CM will follow. Town of Residence: [place] Resides with: Spouse Significant Other/Family: Local (3 sons) Natural Supports: Family Employment Status: Retired ([employer]) Instrumental Activities of Daily Living (ADLs): Independent Medications Medication Management: No Issues/Barriers identified Physical Functioning/Mobility Assistive Device: Walker when not feeling well Advance Directives Advance Directives: Do you have an Advance Directive: N 06/17/14, 12:27 AD On File at [facility]: N 01/22/14, 15:57 Date Asked 04/30/25 04/30/25, 11:24 AD Date Reviewed COLST On File at [facility] COLST Date Scanned Code Status Resuscitation Status Full Code Portal Pt does not currently have a portal and education provided: Yes Insurance Coverage/Financial Issues Insurance: Medicare Part A & B - [id number] [facility] - [id number] Care Team Visit Care Team Role Provider Type Dilan Melgar Primary Care Provider NON-[facility] STAFF PHYSICIAN InPatient Tony Bass Other Providers OTHER JAI Lopez Emergency Provider [facility] [employer] Dilan Freeman MD Admit Provider [facility] STAFF PHYSICIAN Attending Provider Discharge Potential Discharge Needs: Imaging/labs, PT Evaluation and PCP F/U Appt Anticipated Barriers to Discharge: None Identified Patient/Family Education Needs: Review discharge instructions, discuss Ask Me Three Transportation: Private vehicle Plan: Anticipate Heather will be discharge home once medically ready. PT consult pending. It is recommended she follow up with her community providers and continue per her discharge plan of care. She will transport via private vehicle by her . CM will continue to follow. Social Determinants of Health Screening Social Determinants of health last assessed in clinic: 05/01/25 Will the Patient Participate in the Screening?: Yes Do you worry about having a steady place to live?: no Problems where you live: no known problems In the past 12 months, have you had to go without electric, gas, oil or water in your home?: no 1. Within the past 12 months, we worried whether our food would run out before we got money to buy more.: Don't know/refused 2. Within the past 12 months, the food we bought just didn't last and we didn't have money to get more.: Don't know/refused Has lack of transportation kept you from medical appointments or from doing things needed for daily living?: no Has anyone in your life made you feel unsafe or unsupported?: no How hard is it for you to pay for the very basics like food, housing, medical care, and heating? Would you say it is:: Somewhat hard Do you want help finding or keeping work or a job?: I do not need or want help If for any reason you need help with day-to-day activities such as bathing, preparing meals, shopping, managing finances, etc., do you get the help you need?: I don?t need any help How often do you feel lonely or isolated from those around you?: Never Do you speak a language other than Ivorian at home?: No Does the patient want assistance with any of the above?: No Comments: pt reports struggles, we are on fixed incomes, SSI, sometimes the grocery budget tight, like when we have to pay the property taxes Health Related Social Needs Health related social needs: problems related to housing/economic circumstances (Z59.89) Health related social needs details: might need help with food PFSH All Active Problems (Updated 04/30/25 @ 17:27 by Dilan Freeman MD) Transaminitis (Acute) Hypercalcemia (Acute) Elevated BUN (Acute) Hematuria (Acute) Elevated troponin (Acute) RBBB (Acute) Back pain (Acute) Social History Smoking/Tobacco Use Status: Never Smoking risk assessment performed?: Yes Alcohol Intake: never Drug use: Never Substance use type: does not use Housing: house Do you feel safe at home: Yes Do you feel safe in your relationship?: Yes Readmission Within the Past 30 Days Yes or No: No
[2025-05-01] MEDS: Enoxaparin 40 MG/0.4 ML SYR SC (20:20)
[2025-05-01] MEDS: Lidocaine 5% Patch 1 PATCH TD (20:25)
--- NOTE | 2025-05-01 21:23 | DI.VRAD_ITS ---
PROCEDURE INFORMATION: Exam: XR Abdomen Exam date and time: 05/01/2025 6:45 PM Age: 74 years old Clinical indication: Other: Constipation TECHNIQUE: Imaging protocol: Radiologic exam of the abdomen. Views: 2 Views. Upright and supine views. COMPARISON: CT CHEST PE ABD PELVIS W 04/30/2025 12:43 PM FINDINGS: Lungs: Mild left lower lobe lung markings, presumed atelectasis. Gastrointestinal tract: There are multiple air-fluid levels present on the upright exam. There is mild colonic distension. Gas is seen throughout the colon. Intraperitoneal space: Normal. No free air. Organs: There is contrast present in bladder. Vasculature: Severe atherosclerotic change present in the vasculature. Bones/joints: Marked thoracolumbar levoscoliosis. IMPRESSION: Mild colonic distension with air-fluid levels. Suspect ileus. Pattern not typical for obstruction although this is not entirely excludable. Dictated and Authenticated by: Cinda Mendez MD. Orderin Pete Kong MD
[2025-05-01] MEDS: POTASSIUM CHLORIDE/0.45% NACL 1,000 ML 75 MEQ IV (22:24)
[2025-05-01] MEDS: Lactated Ringers 1,000 ML 500 ML IV (22:28)
[2025-05-02] VITALS (20 sets, daily range): BP systolic 148–175; BP diastolic 86–127; PULSE 71–103; RESP 17–29; TEMP 36.5–36.6; O2SAT 87–92
[2025-05-02] MEDS: Methylnaltrexone 12 MG/0.6 ML VIAL 6 MG SC (00:40)
[2025-05-02] MEDS: clonazePAM 0.5 MG TAB PO (04:20)
[2025-05-02 06:40] LABS: Abs Immature Grans 0.07 10^3/uL (0.0-0.06); HCT 38.4 % (36.0-46.0); HGB 13.3 g/dL (11.2-15.7); Immature Grans % 0.6 %; MCH 32.9 pg (27.0-33.0); MCHC 34.6 % (32.0-36.0); MCV 95 fL (80-95); MPV 9.5 fL (8.0-11.0); Platelet Count 237 10^3/uL (130-400); RBC 4.04 10^6/uL (3.93-5.22); RDW 14.3 % (11.7-14.6); RDW-SD 49.8 fL; WBC 11.37 10^3/uL (4.4-10.8)
[2025-05-02] MEDS: MORPHine 2 MG/ML SYR IVP ×2 (06:46→10:54)
[2025-05-02 07:07] LABS: ALT 7 U/L (14-59); AST 44 U/L (15-37); Albumin 3.5 g/dL (3.4-5.0); Alkaline Phosphatase 112 U/L (46-116); Anion Gap 7.3 mmol/L (3-11); BUN 30 mg/dL (7-18); Bilirubin, Total 0.4 mg/dL (0.2-1.0); CO2 28.7 mmol/L (21.0-32.0); Calcium 9.2 mg/dL (8.5-10.1); Chloride 102 mmol/L (98-107); Estimated GFR 67.08 (mL/min/1.73m2); Glucose 100 mg/dL (74-106); Potassium 3.5 mmol/L (3.5-5.1); Sodium 138 mmol/L (136-145); Total Protein 6.8 g/dL (6.4-8.2)
[2025-05-02 07:20] LABS: Troponin I 219 ng/L (<or=51)
[2025-05-02] MEDS: Docusate Sodium 100 MG CAP PO ×3 (08:34→19:19)
[2025-05-02] MEDS: Lactulose 20 GM/30 ML CUP 10 GM PO (08:34)
[2025-05-02] MEDS: amLODIPine 5 MG TAB PO (08:34)
[2025-05-02] MEDS: Aspirin 81 MG CHEW PO (08:34)
[2025-05-02] MEDS: Carbidopa 25/Levodopa 100 TAB PO ×3 (08:34→19:20)
[2025-05-02] MEDS: Tiotropium Bromide-Respimat 10 PUFF INH 2 PUFF IH ×2 (08:39→19:51)
--- NOTE | 2025-05-02 10:45 | PTTR_ITS ---
Date of service: 05/02/25 Time of Service: 10:22 PT Notes Visit Reasons: Back Pain SUBJECTIVE: Feeling worse today. Reports the pain is worse...deep to her breasts. Reports she had dinner last night, but had more bloating so when down for an xray. Not sure what it said. Has been NPO since that time except for sips with meds. Has not had a BM OBJECTIVE:? vitals per RN this mornin/97, 80 bpm, 87%. SOB after ambulation and 86% for ~3 mins and then 88-90% after, HR in 80's throughout Abdominal xray 05/01/25: FINDINGS: BOWEL GAS PATTERN: Nondistended.No free air. Increased stool in right side of colon. CALCIFICATIONS: No urinary tract calcifications. OSSEOUS STRUCTURES: Severe scoliosis and degenerative changes. Visualized portions of chest: Unremarkable. Soft tissues: Aorta heavily calcified. Small amount of residual contrast seen in urinary bladder. IMPRESSION: Nonobstructive bowel gas pattern. Increased quantity of stool which could indicate constipation. WBC 11.7 6:45 am today. 9.07 yesterday 6:09 am. Treatment: sit to/from stand cga. amb 15 feet with walker with assist for leads, stopping and bending into flexion 2x during walking secondary to increased pain Assessment: Patient is a? 74 yo female adm on 04/30/25 for back pain secondary to severe scoliosis and h/o compression fractures, RBBB, Elevated troponin, Hematuria, Elevated BUN, Hypercalcemia, Transaminitis. Increased pain and less mobility today compared to yesterday. Increased pain with ambulation today; ambulation yesterday improved her pain. Plan: Continue PT as tolerated. Billing Charges: Treatment Units Time Duration Manual Therapy (85424) Hands-on techniques to modulate pain increase joint range of motion reduce or eliminate soft tissue swelling, inflammation, or restriction facilitate relaxation and improve contractile and non-contractile tissue extensibility Therapeutic Procedures (40981) Instruction in therapeutic exercises to develop strength and endurance, range of motion and flexibility. HEP instruction and review: Provided skilled instruction in proper exercise performance: Provided skilled manual cues to facilitate proper muscle recruitment and/or movement?pattern: Neurological Re-Education (92553) to improve balance, coordination, kinesthetic and proprioceptive sensations. Ultrasound (04601) to promote healing Gait Training (98257) Therapeutic Activity (10572) instruction in dynamic activitie s with one on one patient contact by the provider to improve functional performance as follows: 1 21 Self Care Training (57292) Time Coded Treatment Minutes: 21 Total Treatment Time: 21
--- NOTE | 2025-05-02 12:58 | W.PM.PROGNOT ---
Date of Service Date of service: 05/02/25 Time of Service: 12:59 Assessment and Plan Assessment and plan (1) Back pain: Status: Acute Assessment and plan: most likely 2/2 scoliosis. Will consult PT in am. CW medical managment 05/01/25 Notes reviewed from PT with dc recommendations being HHPT (2) RBBB: Status: Acute Assessment and plan: Unknown if this is new, or just new to us. Will try to attempt to get old ekg's in the am (3) Elevated troponin: Status: Acute Assessment and plan: monitor, concern that back pain is an anginal equivalent. Will order stress and lipid panel Recheck troponins in am, last set appx ~350. Atypical chest pain. Recheck in am (4) Hematuria: Status: Acute Assessment and plan: Exact etiology is unknown. Recommend repeat UA in 4-6 weeks and a more detailed history. PT denies significant history. Pt does not follow with a Engraver Machine (5) Elevated BUN: Status: Acute Assessment and plan: Elevated bun/cr ratio noted. Consider dehydration vs GIB. H/H wnl so will give small bolus (6) Hypercalcemia: Status: Acute Assessment and plan: noted, asymptomatic. Consider ionized calcium if remains high (7) Transaminitis: Status: Acute Assessment and plan: negligible dvtp lovenox (8) Abdominal pain: Status: Acute Assessment and plan: FINDINGS: Lungs: Mild left lower lobe lung markings, presumed atelectasis. Gastrointestinal tract: There are multiple air-fluid levels present on the upright exam. There is mild colonic distension. Gas is seen throughout the colon. Intraperitoneal space: Normal. No free air. Organs: There is contrast present in bladder. Vasculature: Severe atherosclerotic change present in the vasculature. Bones/joints: Marked thoracolumbar levoscoliosis. IMPRESSION: Mild colonic distension with air-fluid levels. Suspect ileus. Pattern not typical for obstruction although this is not entirely excludable. Will d/w family and offer NG suction otw consult GS. Subjective Subjective Interval history since last seen: Pt reports continued abdominal pain and distention Exam Narrative Exam Narrative: HEENT-normocephalic atraumatic mucous membranes moist Neck-no lymphadenopathy no JVD Cardiovascular-regular rate and rhythm no murmurs gallops Lungs-clear to auscultation bilaterally with good air exchange no accessory muscle use Musculoskeletal patient appears to have significant scoliosis to the left. Cranial nerves II through XII are intact as tested Patient is alert and oriented decreased bowel sounds x4 quadrants Objective Last Vital Signs Temp 36.8 C 05/01/25 12:25 Pulse 80 05/02/25 08:46 Resp 25 H 05/02/25 12:00 BP 157/97 H 05/02/25 08:46 Pulse Ox 87 L 05/02/25 08:46 Laboratory Results - last 24 hr 05/02/25 05:27 WBC 11.37 H RBC 4.04 Hgb 13.3 Hct 38.4 MCV 95 MCH 32.9 MCHC 34.6 RDW 14.3 Plt Count 237 MPV 9.5 Immature Gran % 0.6 Neutrophils % 84.7 Lymphocytes % 7.1 Monocytes % 6.9 Eosinophils % 0.3 Basophils % 0.4 Nucleated RBC % 0.0 Absolute Neutrophils 9.63 H Absolute Lymphocytes 0.81 L Absolute Monocytes 0.78 Absolute Eosinophils 0.03 Absolute Basophils 0.05 Sodium 138 Potassium 3.5 Chloride 102 Carbon Dioxide 28.7 Anion Gap 7.3 BUN 30 H Creatinine 0.9 Est GFR (CKD-EPI 2020) 67.08 Glucose 100 Calcium 9.2 Total Bilirubin 0.4 AST 44 H ALT 7 L Alkaline Phosphatase 112 Troponin I 219 H* Total Protein 6.8 Albumin 3.5 Time Spent with Patient Time Spent with Patient: <25 minutes Time was spent: preparing to see the patient(eg.review tests), obtaining and/or reviewing separately otained hiistory, ordering medications,tests, procedures, referring, communicating with other health pediatric acute care unit nurse, indepentently interpreting results, counseling the patient and care coordination
--- NOTE | 2025-05-02 13:11 | W.PM.PROGNOT ---
Date of Service Date of service: 04/13/25 Time of Service: 13:00 Objective Last Vital Signs Temp 36.8 C 05/01/25 12:25 Pulse 80 05/02/25 08:46 Resp 25 H 05/02/25 12:00 BP 157/97 H 05/02/25 08:46 Pulse Ox 87 L 05/02/25 08:46 Laboratory Results - last 24 hr 05/02/25 05:27 WBC 11.37 H RBC 4.04 Hgb 13.3 Hct 38.4 MCV 95 MCH 32.9 MCHC 34.6 RDW 14.3 Plt Count 237 MPV 9.5 Immature Gran % 0.6 Neutrophils % 84.7 Lymphocytes % 7.1 Monocytes % 6.9 Eosinophils % 0.3 Basophils % 0.4 Nucleated RBC % 0.0 Absolute Neutrophils 9.63 H Absolute Lymphocytes 0.81 L Absolute Monocytes 0.78 Absolute Eosinophils 0.03 Absolute Basophils 0.05 Sodium 138 Potassium 3.5 Chloride 102 Carbon Dioxide 28.7 Anion Gap 7.3 BUN 30 H Creatinine 0.9 Est GFR (CKD-EPI 2020) 67.08 Glucose 100 Calcium 9.2 Total Bilirubin 0.4 AST 44 H ALT 7 L Alkaline Phosphatase 112 Troponin I 219 H* Total Protein 6.8 Albumin 3.5 Time Spent with Patient Time Spent with Patient: <25 minutes Time was spent: preparing to see the patient(eg.review tests), obtaining and/or reviewing separately otained hiistory, ordering medications,tests, procedures, referring, communicating with other health career technical education teacher, indepentently interpreting results, counseling the patient and care coordination
[2025-05-02] MEDS: DEXTROSE 5%-0.45% SALINE 1,000 ML 125 ML IV ×2 (13:30→21:18)
[2025-05-02] MEDS: Patch Removal 1 EACH TP (13:31)
[2025-05-02] MEDS: Enoxaparin 40 MG/0.4 ML SYR SC (19:19)
[2025-05-02] MEDS: Acetaminophen 325 MG TAB PO (23:52)
[2025-05-02] MEDS: Normal Saline Flush 10 ML SYR IVP (23:53)
[2025-05-03] VITALS (21 sets, daily range): BP systolic 120–161; BP diastolic 78–107; PULSE 73–98; RESP 16–26; TEMP 36.7–37.3; O2SAT 91–98
[2025-05-03] MEDS: DEXTROSE 5%-0.45% SALINE 1,000 ML 125 ML IV (05:29)
[2025-05-03] MEDS: MORPHine 2 MG/ML SYR IVP ×3 (05:36→21:38)
[2025-05-03 06:42] LABS: Abs Immature Grans 0.12 10^3/uL (0.0-0.06); HCT 37.7 % (36.0-46.0); HGB 12.9 g/dL (11.2-15.7); Immature Grans % 0.9 %; MCH 32.3 pg (27.0-33.0); MCHC 34.2 % (32.0-36.0); MCV 94 fL (80-95); MPV 9.8 fL (8.0-11.0); Platelet Count 213 10^3/uL (130-400); RBC 4.00 10^6/uL (3.93-5.22); RDW 14.1 % (11.7-14.6); RDW-SD 49.2 fL; WBC 13.77 10^3/uL (4.4-10.8)
[2025-05-03 06:55] LABS: ALT 9 U/L (14-59); AST 36 U/L (15-37); Albumin 3.3 g/dL (3.4-5.0); Alkaline Phosphatase 113 U/L (46-116); Anion Gap 9.9 mmol/L (3-11); BUN 17 mg/dL (7-18); Bilirubin, Total 0.4 mg/dL (0.2-1.0); CO2 24.1 mmol/L (21.0-32.0); Calcium 8.9 mg/dL (8.5-10.1); Chloride 101 mmol/L (98-107); Estimated GFR 90.70 (mL/min/1.73m2); Glucose 124 mg/dL (74-106); Potassium 3.2 mmol/L (3.5-5.1); Sodium 135 mmol/L (136-145); Total Protein 6.6 g/dL (6.4-8.2)
[2025-05-03] MEDS: Tiotropium Bromide-Respimat 10 PUFF INH 2 PUFF IH (08:31)
[2025-05-03] MEDS: Carbidopa 25/Levodopa 100 TAB PO ×3 (08:42→19:28)
[2025-05-03] MEDS: Docusate Sodium 100 MG CAP PO ×3 (08:42→19:28)
[2025-05-03] MEDS: Polyethylene Glycol 3350 17 GM PACKET PO (08:43)
[2025-05-03] MEDS: amLODIPine 5 MG TAB PO (08:43)
[2025-05-03] MEDS: Aspirin 81 MG CHEW PO (08:43)
[2025-05-03] MEDS: Lactulose 20 GM/30 ML CUP 10 GM PO (08:43)
[2025-05-03] MEDS: POTASSIUM CHLORIDE/D5-0.45NACL 1,000 ML 125 MEQ IV (09:10)
[2025-05-03] MEDS: Methylnaltrexone 12 MG/0.6 ML VIAL 6 MG SC (09:10)
--- NOTE | 2025-05-03 14:09 | W.PM.PROGNOT ---
Date of Service Date of service: 05/03/25 Time of Service: 14:10 Assessment and Plan Assessment and plan (1) Back pain: Status: Acute Assessment and plan: most likely 2/2 scoliosis. Will consult PT in am. CW medical managment 05/01/25 Notes reviewed from PT with dc recommendations being HHPT (2) RBBB: Status: Acute Assessment and plan: Unknown if this is new, or just new to us. Will try to attempt to get old ekg's in the am 05/03/25 Echo pending, has been done but not read. I did have a discussion with stress carbonation tester (Collections) who will not perform a stress test on this pt regardless of her ekg and troponins (conversation documented in webex). I have asked for the concerns to be placed in writing but have not seen any documentation. I have asked about a chemical stress test but did not get an answer. In my opininion the pt has a very low likelihood but a stress test was the recommendation for [facility] Cardiology. Excerpt from ED note: Addenda case discussed with ARACELI Stone cardiology from [facility]. concern for type 2 NSTEMI. does not recommend heparinization, asa 81, lipid panel, manage BP, trend troponins, echo, and pharm stress test. pt in pain at time of reassessment. suspect BP pain induced. will order 2 mg of Morphine IV. case discussed with Dr Thurman for admission (3) Elevated troponin: Status: Acute Assessment and plan: monitor, concern that back pain is an anginal equivalent. Will order stress and lipid panel Recheck troponins in am, last set appx ~350. Atypical chest pain. Recheck in am 05/02/25 latest troponin at 219. elevated but indolent. Echo pending (4) Hematuria: Status: Acute Assessment and plan: Exact etiology is unknown. Recommend repeat UA in 4-6 weeks and a more detailed history. PT denies significant history. Pt does not follow with a [facility] (5) Elevated BUN: Status: Acute Assessment and plan: Elevated bun/cr ratio noted. Consider dehydration vs GIB. H/H wnl so will give small bolus 05/03/25 Renal fx has returned to baseline (6) Hypercalcemia: Status: Acute Assessment and plan: noted, asymptomatic. Consider ionized calcium if remains high (7) Transaminitis: Status: Acute Assessment and plan: negligible dvtp lovenox (8) Abdominal pain: Status: Acute Assessment and plan: FINDINGS: Lungs: Mild left lower lobe lung markings, presumed atelectasis. Gastrointestinal tract: There are multiple air-fluid levels present on the upright exam. There is mild colonic distension. Gas is seen throughout the colon. Intraperitoneal space: Normal. No free air. Organs: There is contrast present in bladder. Vasculature: Severe atherosclerotic change present in the vasculature. Bones/joints: Marked thoracolumbar levoscoliosis. IMPRESSION: Mild colonic distension with air-fluid levels. Suspect ileus. Pattern not typical for obstruction although this is not entirely excludable. Will d/w family and offer NG suction otw consult GS. 05/03/25 Pt with ileus. Slowly advance diet. Have discussed with Dr Trivedi () via webex. Will await input but non-emergent Subjective Subjective Interval history since last seen: Pt seen and examined in her room. Pt states appetite has improved to some degree Exam Narrative Exam Narrative: HEENT-normocephalic atraumatic mucous membranes moist Neck-no lymphadenopathy no JVD Cardiovascular-regular rate and rhythm no murmurs gallops Lungs-clear to auscultation bilaterally with good air exchange no accessory muscle use Musculoskeletal patient appears to have significant scoliosis to the left. Cranial nerves II through XII are intact as tested Patient is alert and oriented decreased bowel sounds x4 quadrants Objective Last Vital Signs Temp 36.8 C 05/03/25 12:04 Pulse 77 05/03/25 12:01 Resp 25 H 05/03/25 12:01 BP 139/84 05/03/25 12:01 Pulse Ox 96 05/03/25 12:01 Laboratory Results - last 24 hr 05/03/25 05:25 WBC 13.77 H RBC 4.00 Hgb 12.9 Hct 37.7 MCV 94 MCH 32.3 MCHC 34.2 RDW 14.1 Plt Count 213 MPV 9.8 Immature Gran % 0.9 Neutrophils % 88.7 Lymphocytes % 3.7 Monocytes % 6.0 Eosinophils % 0.3 Basophils % 0.4 Nucleated RBC % 0.0 Absolute Neutrophils 12.21 H Absolute Lymphocytes 0.51 L Absolute Monocytes 0.83 H Absolute Eosinophils 0.04 Absolute Basophils 0.06 Sodium 135 L Potassium 3.2 L Chloride 101 Carbon Dioxide 24.1 Anion Gap 9.9 BUN 17 Creatinine 0.7 Est GFR (CKD-EPI 2020) 90.70 Glucose 124 H Calcium 8.9 Total Bilirubin 0.4 AST 36 ALT 9 L Alkaline Phosphatase 113 Total Protein 6.6 Albumin 3.3 L Time Spent with Patient Time Spent with Patient: 25-34 minutes Time was spent: preparing to see the patient(eg.review tests), obtaining and/or reviewing separately otained hiistory, ordering medications,tests, procedures, referring, communicating with other health foster care worker, indepentently interpreting results, counseling the patient and care coordination
--- NOTE | 2025-05-03 14:58 | PDOC.CMPRO ---
Date of service: 05/03/25 Time of Service: 14:59 Care Management Progress Note Progress Note Text Progress Note Text: Heather was sitting on the edge of the bed when CM met with her today. Her , Tony, and son, Reji were visiting. All were pleasant. Heather had an echocardiogram this afternoon, but the results are not back yet. Stress test was recommended by [facility] consult, but provider note states that she will not have a stress test here per the stress electronic test technician. Unsure if they will perform a chemical stress test. Heather stated that she is feeling a little bit better. Her pain is not quite so bad. She has constant back pain due to her scoliosis, but stated that the pain under her ribs is new. Heather and her family denied any social needs at this time and Heather declined the offer of PT. Discharge Potential Discharge Needs: PCP F/U Appt Anticipated Barriers to Discharge: None Identified Patient/Family Education Needs: Review discharge instructions, discuss Ask Me Three Transportation: Private vehicle Plan: Heather will discharge home once she is medically stable. She will f/u with her PCP and perhaps cardiology as outpatient, and continue per her plan of care. She will transport home with family. CM will continue to follow. Social Determinants of Health Screening Social Determinants of health last assessed in clinic: 05/03/25 Will the Patient Participate in the Screening?: Yes Do you worry about having a steady place to live?: no Problems where you live: no known problems In the past 12 months, have you had to go without electric, gas, oil or water in your home?: no 1. Within the past 12 months, we worried whether our food would run out before we got money to buy more.: Don't know/refused 2. Within the past 12 months, the food we bought just didn't last and we didn't have money to get more.: Don't know/refused Has lack of transportation kept you from medical appointments or from doing things needed for daily living?: no Has anyone in your life made you feel unsafe or unsupported?: no How hard is it for you to pay for the very basics like food, housing, medical care, and heating? Would you say it is:: Somewhat hard Do you want help finding or keeping work or a job?: I do not need or want help If for any reason you need help with day-to-day activities such as bathing, preparing meals, shopping, managing finances, etc., do you get the help you need?: I don?t need any help How often do you feel lonely or isolated from those around you?: Never Do you speak a language other than [place] at home?: No Does the patient want assistance with any of the above?: No Comments: pt reports struggles, we are on fixed incomes, SSI, sometimes the grocery budget tight, like when we have to pay the property taxes Health Related Social Needs Health related social needs: problems related to housing/economic circumstances (Z59.89) Health related social needs details: might need help with food
--- NOTE | 2025-05-03 15:21 | PT.INTREAT ---
PT Notes Visit Reasons: Back Pain Date: 05/03/2025 PRECAUTIONS: Fall, standard, activity as tolerated, elevated troponin. SUBJECTIVE: pt siting on EOB slumped Left side, visiting with , reports feeling fatigue from all the activity done this morning. agreed to PT intervention OBJECTIVE: ? PAIN: right sided chest pain 03/14 VITALS: Closely monitored by ICU nurse Therapeutic Activities 09375: Direct one-on-one instruction in dynamic activities to improve functional performance. ?? BED MOBILITY/TRANSFERS? Rolling L/R: min A Supine-sit: ? SBA ? Sit-supine: ? SBA? Sit-stand: ? ?SBA ? Stand-sit: ?? ?SBA ? Bed-Chair:? ? CGA? Chair-bed: CGA Provided skilled cues and instruction on performance and technique throughout. Gait Training 09675: Direct one-on-one instruction and skilled instruction in: Employing an assistive device Modified weight-bearing status Movement sequencing Turning and movement with proper form Provided verbal cues for equipment management and technique Provided instruction in gait pattern Patient education regarding pacing and breathing techniques to maximize activity tolerance GAIT? Assistive Device: ?? FWW? Weight bearing: FWB Assist: ?CGA ? Distance:?? 5'? Deviation: ? slow alem, low step height, short step length, stoop forward posture, left side lean ? Therapeutic Exercises 72039: Direct one-on-one instruction in therapeutic exercises to develop strength, endurance, range of motion and flexibility. Exercises: Sit to stand 3x Standing weight shifting Standing march Standing heel raise Standing toe raise Seated march Seated LAQ/SAQ Seated hip abd/add Seated ankle pumping Provided skilled instruction in proper exercise performance Provided skilled manual cues to facilitate proper muscle recruitment and/or form: ASSESSMENT:?Pt reports still feeling fatigue form activities done this morning, pt able to perform standing asd seated activity with limited reps. pt understands importance of maintaining movement to keep independence with transfers and ADL's. PLAN: Continue with balance training, global strengthening and general conditioning for improved safety, mobility and activity tolerance until pt is ready for DC. TREATMENT CODE/TIME: 24279y8, 52297z0 30mins (3:00-3:20pm) ?
[2025-05-03] MEDS: POTASSIUM CHLORIDE/D5-0.45NACL 1,000 ML 100 MEQ IV (17:41)
[2025-05-03] MEDS: Enoxaparin 40 MG/0.4 ML SYR SC (18:21)
[2025-05-03] MEDS: Acetaminophen 325 MG TAB PO (18:22)
[2025-05-03] MEDS: Methocarbamol 500 MG TAB 1000 MG PO (18:22)
[2025-05-03] MEDS: Lidocaine 5% Patch 1 PATCH TD (21:23)
[2025-05-03] MEDS: Normal Saline Flush 10 ML SYR IVP (21:39)
[2025-05-04] VITALS (13 sets, daily range): BP systolic 112–169; BP diastolic 84–109; PULSE 79–101; RESP 17–24; TEMP 36.9; O2SAT 96–97
[2025-05-04] MEDS: POTASSIUM CHLORIDE/D5-0.45NACL 1,000 ML 100 MEQ IV (03:55)
[2025-05-04 06:14] LABS: Abs Immature Grans 0.11 10^3/uL (0.0-0.06); HCT 34.8 % (36.0-46.0); HGB 12.0 g/dL (11.2-15.7); Immature Grans % 0.8 %; MCH 32.9 pg (27.0-33.0); MCHC 34.5 % (32.0-36.0); MCV 95 fL (80-95); MPV 10.2 fL (8.0-11.0); Platelet Count 205 10^3/uL (130-400); RBC 3.65 10^6/uL (3.93-5.22); RDW 14.6 % (11.7-14.6); RDW-SD 51.0 fL; WBC 14.58 10^3/uL (4.4-10.8)
[2025-05-04 06:47] LABS: ALT 11 U/L (14-59); AST 40 U/L (15-37); Albumin 2.8 g/dL (3.4-5.0); Alkaline Phosphatase 104 U/L (46-116); Anion Gap 7.4 mmol/L (3-11); BUN 10 mg/dL (7-18); Bilirubin, Total 0.4 mg/dL (0.2-1.0); CO2 24.6 mmol/L (21.0-32.0); Calcium 8.5 mg/dL (8.5-10.1); Chloride 105 mmol/L (98-107); Estimated GFR 90.70 (mL/min/1.73m2); Glucose 110 mg/dL (74-106); Potassium 4.0 mmol/L (3.5-5.1); Sodium 137 mmol/L (136-145); Total Protein 6.3 g/dL (6.4-8.2)
[2025-05-04 07:55] LABS: Lipase 17 U/L (<78)
[2025-05-04] MEDS: Tiotropium Bromide-Respimat 10 PUFF INH 2 PUFF IH (08:02)
[2025-05-04] MEDS: Lactulose 20 GM/30 ML CUP 10 GM PO (08:24)
[2025-05-04] MEDS: Docusate Sodium 100 MG CAP PO (08:25)
[2025-05-04] MEDS: Carbidopa 25/Levodopa 100 TAB PO ×2 (08:25→14:02)
[2025-05-04] MEDS: amLODIPine 5 MG TAB PO (08:25)
[2025-05-04] MEDS: Aspirin 81 MG CHEW PO (08:25)
--- NOTE | 2025-05-04 10:18 | PT.INTREAT ---
PT Notes Visit Reasons: Back Pain Date: 05/04/2025 PRECAUTIONS: Fall, standard, activity as tolerated, elevated troponin. SUBJECTIVE: pt siting on EOB slumped Left side, visiting with . States that she continues to have pain in right rib/abdominal area OBJECTIVE: ? PAIN: right sided chest pain VITALS: Closely monitored by ICU nurse Therapeutic Activities 82304: Direct one-on-one instruction in dynamic activities to improve functional performance. ?? BED MOBILITY/TRANSFERS? Rolling L/R: min A Supine-sit: ? SBA ? Sit-supine: ? SBA? Sit-stand: ? ?SBA ? Stand-sit: ?? ?SBA ? Bed-Chair:? ? CGA? Chair-bed: CGA Provided skilled cues and instruction on performance and technique throughout. GAIT? Assistive Device: ?? FWW? Weight bearing: FWB Assist: ?CGA ? Distance:?? 60'? Deviation: ? slow alem, low step height, short step length, stoop forward posture, left side lean ? Therapeutic Exercises 12484: Direct one-on-one instruction in therapeutic exercises to develop strength, endurance, range of motion and flexibility. Exercises: Sit to stand 3x Standing march 10x, cues for slow pace, breathing Standing heel raise 10x Seated march 10x Seated LAQ/SAQ 10x Seated ankle pumping 10x Provided skilled instruction in proper exercise performance Provided skilled manual cues to facilitate proper muscle recruitment and/or form: ASSESSMENT: Did well with increased activity. Fatigued with ambulation, requiring cues for pacing and breathing techniques throughout. PLAN: Continue with balance training, global strengthening and general conditioning for improved safety, mobility and activity tolerance until pt is ready for DC. TREATMENT CODE/TIME: 71179e3 28mins ([id number]) ?
[2025-05-04] MEDS: Nystatin 500000 UNITS/5 ML SUSP 5ML CUP PO ×2 (10:23→14:01)
[2025-05-04 14:06] LABS: Calculated LDL 69 mg/dL (<100); Cholesterol 145 mg/dL (<200); HDL Cholesterol 59 mg/dL (>or=50); Triglyceride 88 mg/dL (<150)
[2025-05-04 14:13] LABS: Lab Add On Test DONE
--- NOTE | 2025-05-04 14:55 | PDOC.CMDIS ---
Date of service: 05/04/25 Time of Service: 14:55 LACE Index Scoring Tool Questions: Length of Stay (in days): 4 - 6 Was the patient admitted via the E.D.?: Yes E.D. Visits: 1 Answers: Total Score: 8 Risk of Readmission: Low Risk Care Management Discharge Plan Reason for Hospitalization: back pain, ileus Discharge Plan: Heather will be discharged home this afternoon with no new home care services. She will f/u with her PCP and continue per her plan of care. Heather will transport home wih family. Patient/Family Education Needs: Review of discharge instructions, activity, limitations and discuss Ask me 3. SDOH Health Related Social Needs: Health related social needs house/econ circumstance Health related social needs details might need help with food Health related social needs details: might need help with food Referrals and interventions: declined
--- NOTE | 2025-05-04 15:40 | W.PM.DS.N ---
Date of service: 05/04/25 Time of Service: 15:40 DS: Diagnosis Discharge Diagnosis (1) Back pain: Status: Acute (2) RBBB: Status: Acute (3) Elevated troponin: Status: Acute (4) Hematuria: Status: Acute (5) Elevated BUN: Status: Acute (6) Hypercalcemia: Status: Acute (7) Transaminitis: Status: Acute (8) Abdominal pain: Status: Acute Discharge Plan Disposition Patient Disposition: Home Condition: Fair Discharge Details Reason For Visit: Back Pain Admit Date/Time: 04/30/25 17:14 Admit Provider: Dilan Freeman Attending Provider: Dilan Freeman Primary Care Provider: Dilan Melgar Hospital Course Hospital Course: This is a 74-year-old female with history of severe scoliosis, psoriatic arthritis on chronic low dose prednisone, and parkinsons with recently worsening back pain who presented 04/30 with weakness as well as back pain/right chest wall pain. Her troponins were noted to be elevated to 256 with an EKG showing RBBB of uncertain age. Sand she was admitted for evaluation. Her troponins maxed out at 343 before trending down, and were 219 on the morning of 05/02. CT C/A/P did not show acute disease. [facility] cardiology felt this was type 2 NSTEMI and recomeneded aspirin and lipid management. Her symptoms improved. Lipid panels showed. Echocardiogram 05/03 showed normal LV function 55-60% LVEF with no wall motion abnormalities. LDL was good at 69 with TC 145 and HDL 59, but she was prescribed 10mg atorvastatin to improve her risk profile. Of note she had stable elevation of AST. This was previously attributed to methotrexate, but she had tapered off this medicaiton. Her platelets were normal, suggesting against cirrhosis. Her prednisone was continued at low dose. Her blood pressure was not low. Her COPD was stable. She was not short of breath or hypoxic. Incidental hematuria was noted, and outpatient follow up should be done. She hed increased abdominal pain 05/02 and was diagnosed with an ileus. She has had some chronic constipation issues and is on lactulose. She did get a dose of subcut methylnatrexone 05/03. She was having small bowel movements at the time of discharge. Bowel meds were prescribed. Her pain was improved and she worked with PT. She was continued on hydrocodone/acetaminophen. She declined home health services including PT. She had mild thrush noted the day of discharge and was prescribed nystatin orally. Her WBC was normal on admission, but did creep up, with no signs of infection. This should be followed. Calcium and BUN were elevated on admission but normalized with hydration and were stable. she had a blister on her left lateral malleolus without signs of infection. This was likely related to friction and some LE edema. Skin care was discussed. Recommendations for Follow Up Recommended tests to be ordered by follow up provider: CMP, CBC/w diff, troponin in 1 week. Home Meds and New Rx's Prescriptions: New bisacodyl 10 mg Suppository 10 mg LA DAILY PRN PRNQty: 10 0RF nystatin 100,000 unit/mL Suspension 500,000 unit PO QID Qty: 100 0RF polyethylene glycol 3350 17 gram Powder In Packet 17 g PO DAILY PRN PRN (Reason: Constipation) Qty: 30 0RF sennosides-docusate sodium 8.6-50 mg tablet 1 tab-cap PO BID Qty: 60 2RF atorvastatin [Lipitor] 10 mg tablet 10 mg PO QHS Qty: 90 0RF Continued prednisone 1 MG tablet 4 mg PO DAILY hydrocodone-acetaminophen 1 EACH tablet 1 tab-cap PO TID aspirin [Aspirin Low-Strength] 81 MG tablet,chewable 81 mg PO DAILY calcium citrate-vitamin D3 1 EACH tablet 1 ea PO DAILY lactulose [Constulose] 10 gram/15 mL solution 15 ml PO DAILY Patient Comments: TAKE 15 ML BY MOUTH DAILY methocarbamol 500 mg tablet 1,000 mg PO QID PRN Patient Comments: TAKE TWO TABLETS BY MOUTH FOUR TIMES A DAY NEEDED lidocaine 5 % adhesive patch,medicated 1 patch transdermal Q24H Patient Comments: APPLY ONE PATCH TOPICALLY EVERY DAY REMOVE PATCHES AFTER 12 HOURS, 12 HOURS ON 12 HOURS OFF amlodipine 5 mg tablet 5 mg PO DAILY carbidopa-levodopa 25-100 mg tablet 1 tab PO TID clonazepam 0.5 mg tablet 0.5 mg PO BID PRN Spiriva Respimat 2.5 mcg/actuation mist 2 inh INHALATION BID Discharge Instructions Activity:: Activity as Tolerated Equipment/Supplies:: No Equipment Needed Diet:: Low Sodium Discharge Orders Discharge Orders: Discharge Order (Routine); Ordered 05/04/25 Ordered By: Kelvin Pino DS: Summary Time Spent with Patient providing and/or coordinating discharge services: Greater than 30 minutes Status at Discharge Functional status at discharge: independent ambulation Overall status at discharge: patient is back to baseline Mental Status: mental status grossly normal Speech and Movement: speech and movement normal Mood: congruent mood Affect: normal affect Quality:SDOH Health Related Social Needs: Health related social needs house/econ circumstance Health related social needs details might need help with food Health related social needs details: might need help with food Referrals and interventions: declined Exam Narrative Exam Narrative: GEN: Alert and oriented, NAD Cardiovascular-regular rate and rhythm no murmurs gallops Lungs-clear to auscultation bilaterally with good air exchange no accessory muscle use Musculoskeletal patient appears to have significant scoliosis, some tenderness right chest wall. ABD: +BS, soft, NT/ND Psych Mental Status: mental status grossly normal Speech and Movement: speech and movement normal Mood: congruent mood Affect: normal affect DS: Data Vitals/I&O Vitals and I&O: Vital Signs Temperature 36.9 C 05/04/25 08:46 Temperature Source Tympanic 05/03/25 12:04 Pulse 97 H 05/04/25 14:53 Pulse 82 05/04/25 14:53 Respiratory Rate 20 05/04/25 14:53 Respiratory Effort Normal 04/30/25 20:05 Respiratory Depth Normal 04/30/25 20:05 Respiratory Pattern Normal 04/30/25 20:05 Blood Pressure 133/87 05/04/25 14:53 Blood Pressure Mean 102 05/04/25 14:53 Blood Pressure Position Sitting 04/30/25 20:05 Pulse Oximetry 96 05/04/25 08:46 Oxygen Delivery Method Room Air 05/04/25 08:05 Oxygen Flow Rate 0 05/04/25 08:05 Pain Level 10 05/03/25 21:38 Intake & Output 05/03/25 05/04/25 05/04/25 23:59 11:59 23:59 Intake Total 1220 / 2680.417 1828.333 / 1828.333 Output Total 850 / 1250 525 / 615 90 / 615 Balance 370 / 7342.393 9964.333 / 1213.333 -90 / 1213.333 Weight 44 kg Intake: IV 1000 / 2460.417 1508.333 / 1508.333 Oral 220 / 220 320 / 320 Output: Urine 850 / 1250 525 / 615 90 / 615 Other: Urine Color Yellow Yellow Yellow Urine Appearance Clear Clear Clear Urine Odor None Normal Normal Comment new pull up at this time Stool Size Small Small Small Stool Characteristics Soft Soft Soft Formed Brown Brown Data Completed and Pending Labs on day of discharge: Labs from last 24 hours 05/04/25 05/04/25 05:30 05:20 WBC 14.58 H RBC 3.65 L Hgb 12.0 Hct 34.8 L MCV 95 MCH 32.9 MCHC 34.5 RDW 14.6 Plt Count 205 MPV 10.2 Immature Gran % 0.8 Neutrophils % 87.7 Lymphocytes % 5.1 Monocytes % 5.6 Eosinophils % 0.5 Basophils % 0.3 Nucleated RBC % 0.0 Absolute Neutrophils 12.79 H Absolute Lymphocytes 0.74 L Absolute Monocytes 0.82 H Absolute Eosinophils 0.07 Absolute Basophils 0.04 Sodium 137 Potassium 4.0 Chloride 105 Carbon Dioxide 24.6 Anion Gap 7.4 BUN 10 Creatinine 0.7 Est GFR (CKD-EPI 2020) 90.70 Glucose 110 H Calcium 8.5 Total Bilirubin 0.4 AST 40 H ALT 11 L Alkaline Phosphatase 104 Total Protein 6.3 L Albumin 2.8 L Triglycerides 88 Total Cholesterol 145 LDL Cholesterol, Calc 69 HDL Cholesterol 59 Lipase 17 Add-On Test Request DONE PFS All Active Problems (Updated 05/04/25 @ 15:38 by Kelvin Pino) Abdominal pain (Acute) Transaminitis (Acute) Hypercalcemia (Acute) Elevated BUN (Acute) Hematuria (Acute) Elevated troponin (Acute) RBBB (Acute) Back pain (Acute) Social History Smoking/Tobacco Use Status: Never Smoking risk assessment performed?: Yes Alcohol Intake: never Drug use: Never Substance use type: does not use Housing: house Do you feel safe at home: Yes Do you feel safe in your relationship?: Yes Time Spent with Patient Time Spent with Patient: <45 minutes Time was spent: preparing to see the patient(eg.review tests), obtaining and/or reviewing separately otained hiistory, ordering medications,tests, procedures, referring, communicating with other health director of health care marketing, indepentently interpreting results, counseling the patient and care coordination
== END 2025-05-04 16:33 | disposition home or self-care (01) | DRG 551 ==
LOC: ER 16:03 → ICU 19:12
PROVIDERS: Physician Assistant; Admitting Provider Hospitalist; Emergency Provider Physician Assistant; PCP Internal Medicine; Responsible Provider Family Medicine; Visit Provider Hospitalist
DX: I45.10 Unspecified right bundle-branch block; R74.8 Abnormal levels of other serum enzymes; R31.9 Hematuria, unspecified; E83.52 Hypercalcemia; R74.01 Elevation of levels of liver transaminase levels; M41.85 Other forms of scoliosis, thoracolumbar region; I21.A1 Myocardial infarction type 2; M48.54XA Collapsed vertebra, not elsewhere classified, thoracic region, initial encounter for fracture; K56.7 Ileus, unspecified; R79.89 Other specified abnormal findings of blood chemistry; Z79.899 Other long term (current) drug therapy; R53.1 Weakness; R07.89 Other chest pain; Z87.891 Personal history of nicotine dependence; R06.02 Shortness of breath; Z59.89 Other problems related to housing and economic circumstances; Z59.41 Food insecurity; Z79.52 Long term (current) use of systemic steroids; L40.50 Arthropathic psoriasis, unspecified; G20.A1 Parkinson's disease without dyskinesia, without mention of fluctuations; K59.09 Other constipation
CPT/HCPCS: 00123; 36415; 71275; 74177; 80053; 80061; 83690; 93005; 94618; 94640; 96361; 96372; 96374; 96376; 97110; 97116; 97161; 97530; 99285; J1650; 74019; 81003; 81015; 83605; 83735; 84484; 85025; 93010; 93306; 94664; 94667; 94760; 99222; 99231; 99238; G0378; J2212; J2270; J3490

== ENCOUNTER 2025-05-12 20:37 | Outpatient (REF) | payer MEDICARE, SELFPAY ==
[2025-05-12 20:59] LABS: Abs Immature Grans 0.09 10^3/uL (0.0-0.06); HCT 35.2 % (36.0-46.0); HGB 11.7 g/dL (11.2-15.7); Immature Grans % 1.0 %; MCH 31.9 pg (27.0-33.0); MCHC 33.2 % (32.0-36.0); MCV 96 fL (80-95); MPV 9.3 fL (8.0-11.0); Platelet Count 365 10^3/uL (130-400); RBC 3.67 10^6/uL (3.93-5.22); RDW 14.6 % (11.7-14.6); RDW-SD 50.8 fL; WBC 8.73 10^3/uL (4.4-10.8)
[2025-05-12 21:15] LABS: ALT 13 U/L (14-59); AST 18 U/L (15-37); Albumin 3.4 g/dL (3.4-5.0); Alkaline Phosphatase 110 U/L (46-116); Anion Gap 9.8 mmol/L (3-11); BUN 17 mg/dL (7-18); Bilirubin, Total 0.3 mg/dL (0.2-1.0); CO2 27.2 mmol/L (21.0-32.0); Calcium 10.5 mg/dL (8.5-10.1); Chloride 102 mmol/L (98-107); Estimated GFR 59.12 (mL/min/1.73m2); Glucose 117 mg/dL (74-106); Potassium 4.0 mmol/L (3.5-5.1); Sodium 139 mmol/L (136-145); Total Protein 6.9 g/dL (6.4-8.2)
[2025-05-12 21:29] LABS: Troponin I 114 ng/L (<or=51)
== END 2025-05-12 20:38 | disposition home or self-care (01) ==
LOC: NCHCN 20:37
PROVIDERS: PCP Internal Medicine; Visit Provider Nurse Practitioner Family
DX: R79.89 Other specified abnormal findings of blood chemistry (principal)
CPT/HCPCS: 80053; 84484; 85025